=== PATIENT | male | born 1950 | race Caucasian/White ===

== ENCOUNTER 2025-02-21 00:59 | Inpatient (IN) | payer OTHER ==
[~2025-02-21] VITALS: Ht 172.7 cm; Wt 111.7 kg
[2025-02-21] VITALS (28 sets, daily range): BP systolic 74–167; BP diastolic 42–94; PULSE 77–155; RESP 0–22; TEMP 97–98.1; O2SAT 88–100
[2025-02-21] MEDS: SODIUM CHLORIDE 0.9% 1,000 ML IV ONE ×2 (01:15→04:15)
[2025-02-21] MEDS: PIPERACILLIN-TAZOB 3.375GM 100 ML IV ONE ×2 (01:15→04:15)
--- NOTE | 2025-02-21 01:16 | ED.PDOC ---
CPR-HPI HPI Comments 74 year old male PMHx a-fib RVR, DM, prostate cancer currently under carla motherapy and radiation, HTN presents to the ED via EMS with a chief complaint of cardiac arrest. Per EMS, total downtime was approximately 17 minutes. Patient was being transported from [facility] by transport team, witnessed cardiac arrest, compressions began immediately. In route to ED, IO was placed RLE, 4 rounds EPI was given in route. Upon ED arrival, compressions continued, patient was intubated with 8.0 ett, 24 at lips. Temperature was 97.8 F, BG was 157. ROSC 0105. Chief Complaint: CPR Time Seen by MD: 00:55 Reviewed Notes: Medications, Allergies Allergies: Coded Allergies: UNOBTAINABLE (Unverified , 02/21/25) Information Source: Emergency Med Personnel Mode of Arrival: EMS Timing: Minutes Duration: Total time prior hopital: (17 minutes) Onset: Witnessed Available Hx: Prior Cardiac Disease Treatment: CPR, Epinephrine, None (IO) Response: No response Past Medical History PAST MEDICAL HISTORY: AFIB, CAD, DM, HTN Surgical History: Unknown Family History Family History: Reviewed,noncontributory to illness, No family hx of Cancer, No family hx of DM, No family hx of Heart mary, No family hx of HTN, No family hx ofKidney mary, No family hx of Liver mary, No family hx of Lung mary, No family hx of Stroke Social History Smoker: Unknown Alcohol: Unknown Drugs: Unknown Lives In: Home Unable to Obtain due to: Medical Urgency Physical Exam Exam Comments Obese, ashen, gravely ill appearing. CPR in progress. General Appearance: Severe Distress HEENT: Head, Other Neck: Full Range of Motion, Non-Tender, Normal, Normal Inspection Respiratory: Chest Non-Tender, Lungs Clear, No Accessory Muscle Use, No Respiratory Distress, Normal Breath Sounds Cardiovascular: Other (Initially pulseless, successfully resuscitated with tachycardic rate and palpable pulses) Breast Exam: Deferred Gastrointestinal: Distended, Non Tender, Soft, Other (Obese) Genitalia: Deferred Pelvic: Deferred Rectal: Deferred Extremities: No calf tenderness, Normal capillary refill, Normal inspection, Normal range of motion, Non-tender, No pedal edema Musculoskeletal : Apperance: Normal Neurologic: Other (Unresponsive) Cerebellar Function: Normal Reflexes: Normal Skin: Dry, Normal Color, Warm Lymphatic: No Adenopathy Was a procedure done? Was a procedure done?: Yes Sedation Sedation?: No Informed consent obtained: No Intubation Indication: Respiratory Insufficiency Intubation Approach: Orotracheal (8.0) Intubation size: cm (24) Notes I, Dr. Uriostegui supervised Vita Menjivar, resident physician as she intubated. Differential Dx CPR Differential Diagnosis: Cardiopulmonary arrest, Cardiac Tamponade, Cardiogenic shock, Dysrhythmia, Electrolyte disorder, Heart Block, Myocardial Infarction, Pneumothorax, Pulmonary Embolus, Respiratory Failure, Ruptured Aortic Aneurysm, Other X-Ray, Labs, Meds, VS Vital Signs Date Time Temp Pulse Resp B/P (MAP) Pulse Ox O2 Delivery O2 Flow Rate FiO2 02/21/25 02:55 97.8 77 18 167/94 100 97.8 02/21/25 01:51 97.8 97.8 02/21/25 01:45 77 18 167/94 (118) 100 02/21/25 01:25 18 92/33 (52) 02/21/25 01:10 114 Lab Test 02/21/25 02:10 02/21/25 01:22 Range/Units Troponin I High Sensitivity Pending 156 *H </=54 ng/L White Blood Count 25.1 H 4.4-10.8 10^3/uL Red Blood Count 2.84 L 4.5-5.90 10^6/uL Hemoglobin 8.3 L 13.5-17.5 g/dL Hematocrit 27.6 L 41.0-53.0 % Mean Corpuscular Volume 97.4 80.0-100.0 fL Mean Corpuscular Hemoglobin 29.1 28.0-32.0 pg Mean Corpuscular Hemoglobin Concent 29.9 L 32.0-36.0 g/dL Red Cell Distribution Width 17.0 H 11.8-14.3 % Platelet Count 281 140-450 10^3/uL Mean Platelet Volume 8.0 6.9-10.8 fL Neutrophils (%) (Auto) 37.0-80.0 % Lymphocytes (%) (Auto) 10.0-50.0 % Monocytes (%) (Auto) 0.0-12.0 % Basophils (%) (Auto) 0.0-2.0 % Neutrophils # (Auto) 1.6-8.6 10 ^3/uL Lymphocytes # (Auto) 0.4-5.4 10 ^3/uL Monocytes # (Auto) 0-1.3 10 ^3/uL Differential Total Cells Counted 100.0 100 Neutrophils % (Manual) 79 37.0-80.0 Band Neutrophils % (Manual) 3 Lymphocytes % (Manual) 16 10.0-50.0 Monocytes % (Manual) 2 0-12 Eosinophils % (Manual) 0 0-7 Basophils % (Manual) 0 0.0-2.0 Metamyelocytes % (manual) 0 Myelocytes % (Manual) 0 Promyelocytes % (Manual) 0 Blast Cells % (Manual) 0 Reactive Lymphocytes 0 Platelet Estimate Adequate Sodium Level 148 H 136-145 mmol/L Potassium Level 5.1 3.5-5.1 mmol/L Chloride Level 106 98-107 mmol/L Carbon Dioxide Level 20 20-31 mmol/L Anion Gap 22 H 5-15 Blood Urea Nitrogen 54 H 9-23 mg/dL Creatinine 1.74 H 0.700-1.30 mg/dL Glomerular Filtration Rate Calc 40 >90 mL/min BUN/Creatinine Ratio 31.0 H 10.0-20.0 Serum Glucose 231 H 74-106 mg/dL Lactic Acid Level 11.8 *H 0.4-2.0 mmol/L Calcium Level 8.1 L 8.7-10.4 mg/dL Magnesium Level 2.5 1.6-2.6 mg/dL Total Bilirubin 0.6 0.2-1.0 mg/dL Aspartate Amino Transferase (AST) 252 H 13-40 U/L Alanine Aminotransferase (ALT) 265 H 7-40 U/L Alkaline Phosphatase 173 H 46-116 U/L B-Type Natriuretic Peptide 520.13 0-100 pg/mL Total Protein 5.0 L 5.7-8.2 g/dL Albumin 2.7 L 3.2-4.8 g/dL Current Medications Medications (Trade) Dose Ordered Sig/Catherine Route Start Time Stop Time Status Last Admin Sodium Chloride 1,000 ml @ 1,000 mls/hr Q1H ONCE IV 02/21/25 01:15 02/21/25 02:14 DC 02/21/25 01:15 Time of 1ST Reevaluation: 01:25 Reevaluation 1ST: Unchanged Patient Education/Counseling: Diagnosis, Treatment, Other Family Education/Counseling: Diagnosis, Treatment, No Family Present SEPSIS Sepsis Screen Physician Orders Chest Portable (02/21/25 01:15) Urinalysis (02/21/25 01:15) Electrocardigram (02/21/25 01:15) Troponin-I Hs (02/21/25 02:15) Troponin-I Hs (02/21/25 04:15) Blood Culture (02/21/25 01:15) Vent Ip Init (02/21/25 01:05) Respiratory Culture W/ Gs (02/21/25 01:05) Abg W/ Co-Ox (02/21/25 02:05) Epinephrine Hcl (02/21/25 01:45) Communication Order (02/21/25 01:33) Epinephrine Hcl (02/21/25 02:00) Norepinephrine 8 Mg/250ml Kit (Levophed) (02/21/25 02:00) Chest Xray 1 View (02/21/25 02:28) Communication Order (02/21/25 02:46) Sodium Chl 0.9% (So... W/Vasopressin (02/21/25 03:15) Vital Signs Date Time Temp Pulse Resp B/P (MAP) Pulse Ox O2 Delivery O2 Flow Rate FiO2 02/21/25 02:55 97.8 77 18 167/94 100 97.8 02/21/25 01:51 97.8 97.8 02/21/25 01:45 77 18 167/94 (118) 100 02/21/25 01:25 18 92/33 (52) 02/21/25 01:10 114 Laboratory Tests Test 02/21/25 01:22 Lactic Acid Level 11.8 mmol/L (0.4-2.0) *H White Blood Count 25.1 10^3/uL (4.4-10.8) H Medications Medications Dose Ordered Sig/Catherine Route Start Time Stop Time Status Last Admin Dose Admin Sodium Chloride 1,000 ml @ 1,000 mls/hr Q1H ONCE IV 02/21/25 01:15 02/21/25 02:14 DC 02/21/25 01:15 Departure 1 Departure Time of Disposition: 03:13 Impression: Primary Impression: Cardiac arrest Additional Impressions: Respiratory failure with hypoxia Acute coronary syndrome Congestive heart failure Type 2 diabetes mellitus with hyperglycemia Acute renal injury Disposition: 09 ADMITTED INPATIENT Admit to: ICU Condition: Critical Discharged With: Self, Relative, Spouse Comments 74-year-old male brought in by ambulance in full arrest CPR in progress. CPR was continued in the emergency department. Patient was intubated for MAC blade and 8-0 cuffed endotracheal tube. With ACLS medications the patient was suc cessfully resuscitated and obtained a good pulse. A central line was placed in the left IJ. On lab review white blood cell count is high at 25. No severe anemia with H and H of 8 and 28. Sodium slightly elevated at 148. Borderline hyperkalemia 5.1. Acute renal injury we BUN creatinine elevated at 54 and 1.74. Hyperglycemia 231. Lactic acid high at 11.8. Troponin high at 156. BNP high at 520. Patient will need ICU admission for stabilization and further workup. Critical Care Note Critical Care Time?: Yes (45 min-critical care time only) Critical care comment: Total critical care time: Approximately 45 minutes Due to a high probability of clinically significant, life threatening deterioration, the patient required my highest level of preparedness to intervene emergently and I personally spent this critical care time directly and personally managing the patient. This critical care time included obtaining a history; examining the patient; pulse oximetry; ordering and review of studies; arranging urgent treatment with development of a management plan; evaluation of patient's response to treatment; frequent reassessment; and, discussions with other providers. This critical care time was performed to assess and manage the high probability of imminent, life-threatening deterioration that could result in multi-organ failure. It was exclusive of separately billable procedures and treating other patients. Heart Score Heart Score: Heart Score Response (Comments) Value History Moderate Suspicious 1 EKG Repolarization Disturb 1 Age >65 2 Risk Factors >3 or Hx ASHD 2 Troponin 1-2 x's Normal limit 1 Total 7 Stability Stability form required: No I personally scribed for KOREY URIOSTEGUI MD ([email or web address]) on 02/21/25 at 01:16. Electronically submitted by Poly Chao ([email or web address]). I personally scribed for KOREY URIOSTEGUI MD ([email or web address]) on 02/21/25 at 01:17. Electronically submitted by Poly Chao ([email or web address]). KOREY URIOSTEGUI MD Feb 21, 2025 01:16
[2025-02-21] MEDS: EPINEPHrine HCL 250 ML IV ONE (01:32)
[2025-02-21] MEDS: EPINEPHrine HCL 250 ML IV SCH ×2 (01:39→01:45)
[2025-02-21] MEDS: NOREPINEPHRINE 8 MG/250ML KIT 250 ML IV SCH (01:39)
[2025-02-21 01:45] LABS: Hemoglobin 8.3 g/dL (13.5-17.5)
[2025-02-21] MEDS: NOREPINEPHRINE 8 MG/250ML KIT 250 ML IV ONE (01:45)
[2025-02-21 01:46] LABS: Hematocrit 27.6 % (41.0-53.0); Mean Corpuscular Hemoglobin 29.1 pg (28.0-32.0); Mean Corpuscular Volume 97.4 fL (80.0-100.0)
[2025-02-21 02:02] LABS: Anion Gap 22 (5-15); BUN/Creatinine Ratio 31.0 (10.0-20.0); Chloride 106 mmol/L (98-107); Magnesium 2.5 mg/dL (1.6-2.6); Potassium 5.1 mmol/L (3.5-5.1)
[2025-02-21 02:03] LABS: Bilirubin, Total 0.6 mg/dL (0.2-1.0)
[2025-02-21 02:05] LABS: Lactic Acid w/Reflex 11.8 mmol/L (0.4-2.0)
[2025-02-21 02:06] LABS: Alanine Aminotransferase 265 U/L (7-40); Albumin 2.7 g/dL (3.2-4.8); Alkaline Phosphatase 173 U/L (46-116); Blood Urea Nitrogen 54 mg/dL (9-23); Calcium 8.1 mg/dL (8.7-10.4); Carbon Dioxide 20 mmol/L (20-31); Glucose 231 mg/dL (74-106); Sodium 148 mmol/L (136-145); Total Protein 5.0 g/dL (5.7-8.2)
--- NOTE | 2025-02-21 02:16 | DVHNC2 ---
Intubation Indication: Respiratory Insufficiency, Altered Mental Status, Airway Protection Prep: Preoxygenation Pretreated with: Nothing Medicated with: Nothing Intubation Approach: Orotracheal Intubation size: cm (8) Informed consent obtained: No Risks/benefits/alt described: No UTO Consent Patient was admitted due to cardiac arrest. No consents obtained Notes Completed ET intubation with direct laryngoscopy. Procedure supervised by Dr Montes Date of Service: Feb 21, 2025 Billing Provider: SHAKEEL GRIGSBY Common Visit Codes: PROCEDURE ONLY Procedure Codes: [id number] SHAKEEL GRIGSBY Feb 21, 2025 02:16
--- NOTE | 2025-02-21 02:20 | DVH ---
CHEST RADIOGRAPH Indication: SOB Technique: Single frontal view of the chest was obtained COMPARISON: XR CHEST 1 VIEW on DOS: 02/07/25, CT CHEST WO on DOS: 07/28/23, XR CHEST 1 VIEW on DOS: FINDINGS: Lines and Tubes: Endotracheal tube tip projects approximately 0.9 cm above the level of the melody. E nteric catheter terminates within the mid to distal esophagus. Left internal jugular central venous catheter tip projects over the expected location of the cavoatrial junction. Lungs: Diminished lung volumes and small bilateral pleural effusions with mild concomitant exaggerati on of the pulmonary vasculature. No evidence of focal consolidation. Pleura: No effusion. No pneumothorax. Cardiomediastinal contours: Unremarkable Bones: Unremarkable IMPRESSION: 1. Enteric catheter terminates within the mid to distal esophagus. Recommend advancement. 2. Endotracheal tube proximally 0.9 cm above the level of the melody. Reposition for optimal placemen t. 3. Left internal jugular central venous catheter. 4. Diminished lung volumes and small bilateral pleural effusions.
--- NOTE | 2025-02-21 02:20 | DVHNC2 ---
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) Indication: Hypotension, Volume resuscitation, Inability to obtain IV, Other (Cardiac arrest) Room prepared for procedure: Yes Relay Worker performed hand hygien: Yes Maximal sterile barrier precau: Mask/Eye shield, Sterile gown, Cap, Sterlie gloves, Large sterlie drape Skin Preparation: Chlorhexidine gluconate Skin preparation completely dr: Yes Insertion site: Left, Internal jugular, Line secured Central line catheter type: [id number] dialysis Number of lumens: 3 Central line exchanged over a: No Antiseptic ointment applied to: Yes Post Assessment: Chest X-Ray, Proper placement, No Pneumothorax Informed consent obtained: No Risks/benefits/alt described: No UTO Consent Patient admitted with cardiac arrest. No consents obtained Notes Completed procedure with US guidance. Procedure supervised by Dr Uriostegui Date of Service: Feb 21, 2025 Billing Provider: KOREY URIOSTEGUI MD Common Visit Codes: PROCEDURE ONLY Procedure Codes: [id number] NON-TUNNEL CV CATH SHAKEEL GRIGSBY RESIDENT Feb 21, 2025 02:20
[2025-02-21 02:23] LABS: Total Cells Counted 100.0 (100)
[2025-02-21] MEDS: VASOPRESSIN 20 UNITS in SODIUM CHL 0.9% 99 ML IV SCH (02:30)
--- NOTE | 2025-02-21 02:55 | DVH ---
CHEST RADIOGRAPH Indication: CENTRAL// CODE Technique: Single frontal view of the chest was obtained COMPARISON: XY CHEST PORTABLE on DOS: 02/21/25, XR CHEST 1 VIEW on DOS: 02/07/25, CT CHEST WO on DOS: , XR CHEST 1 VIEW on DOS: 05/28/23 FINDINGS: Lines and Tubes: Interval advancement of the enteric catheter with tip now projecting over the expect ed location of the gastroesophageal junction. Remaining lines and tubes unchanged. Lungs: Clear Pleura: Stable appearing small bilateral pleural effusions. No pneumothorax. Cardiomediastinal contours: Unremarkable Bones: Unremarkable IMPRESSION: 1. Interval advancement of the enteric catheter with tip now projecting over the expected location of the gastroesophageal junction. Remaining Lines and tubes unchanged 2. Small bilateral pleural effusions.
[2025-02-21] MEDS: VASOPRESSIN 20 UNIT/ML ONE (03:22)
[2025-02-21 03:42] LABS: Base Excess -11.2 mmol/L (-2.0-3.0)
[2025-02-21] MEDS: SODIUM BICARB 50mEq/50ml Vial 150 ML in SOD CHL 0.45% 1,000 ML IV ONE (04:39)
[2025-02-21] MEDS: SODIUM BICARB 8.4% 50Meq/50ml SYR Vial IV ONE (04:40)
[2025-02-21] MEDS: MIDAZOLAM DRIP 50 mg/50mL 50 ML IV SCH (05:00)
--- NOTE | 2025-02-21 05:12 | RESUS ---
CODE BLUE ASSESSSMENT History of Events History of Events: 74 year old male PMHx a-fib RVR, DM, prostate cancer currently under chemotherapy and radiation, HTN presents to the ED via EMS with a chief complaint of cardiac arrest. Per EMS, total downtime was approximately 17 minutes. Patient was being transported from [facility] by transport team, witnessed cardiac arrest, compressions began immediately. In route to ED, IO was placed RLE, 4 rounds EPI was given in route. Upon ED arrival, compressions continued, patient was intubated with 8.0 ett, 24 at lips. Temperature was 97.8 F, BG was 157. Multiple episodes of Cardiac arrest after ROSC at 0105. Initial Information Date: Feb 21, 2025 Time: 00:55 Location of Arrest: In Field Arrest Witnessed: Yes CPR started initial time: 00:25 CPR started by whom: EMS Last seen well: 0024 Pre-Hospital Care: ACLS Type of arrest: Cardiac, Trauma, Adult, Witnessed Spontaneous Respirations: No Pulse Present: No Monitoring: ECG, Pulse Oximetry, Telemetry Crash Cart Opened and Supplies: Yes Airway Ventilation Oxygen Delivery Method: Mechanical Ventilator Artificial Ventilation: Bag/Endo tube Intubation Size: 8.0 cuffed Intubated by: Dr. Gorman Intubation Attempts: 1 Intubated orally: Yes Tube secured at: 26 (@ lip) Confirmation: Auscultation Suctioning (Oral/Tracheal): Yes Comments: confired via color change, and auscultation Circulation Circulation #1: Time: 00:55 Pulse Rate (adult): 0 Blood Pressure Systolic: 0 Blood Pressure Diastolic: 0 Circulation Comment: Arrival with manual compressions Circulation #2: Time: 00:57 Pulse Rate (adult): 0 Blood Pressure Systolic: 0 Blood Pressure Diastolic: 0 Circulation Comment: asystole- intubated at this time b/s 157 Circulation #3: Time: 00:59 Pulse Rate (adult): 0 Blood Pressure Systolic: 0 Blood Pressure Diastolic: 0 Circulation Comment: asystole Circulation #4: Time: 01:01 Pulse Rate (adult): 0 Blood Pressure Systolic: 0 Blood Pressure Diastolic: 0 Circulation Comment: asystole Circulation #5: Time: 01:03 Pulse Rate (adult): 70 Blood Pressure Systolic: 0 Blood Pressure Diastolic: 0 Circulation Comment: PEA Circulation #6: Time: 01:05 Pulse Rate (adult): 114 Blood Pressure Systolic: 167 Blood Pressure Diastolic: 94 Circulation Comment: ROSC Circulation #7: Time: 01:19 Circulation Comment: Patient bradyed down, Pulses lost Code blue started. compressions. Circulation #8: Time: 01:21 Pulse Rate (adult): 0 Blood Pressure Systolic: 0 Blood Pressure Diastolic: 0 Circulation Comment: Asystole Circulation #9: Time: 01:23 Pulse Rate (adult): 75 Circulation Comment: PEA Circulation #10: Time: 01:25 Pulse Rate (adult): 115 Blood Pressure Systolic: 92 Blood Pressure Diastolic: 33 Circulation Comment: ROSC- Already on Epi GTT, and Will be started on Vasopressin Circulation #11: Time: 01:40 Pulse Rate (adult): 0 Blood Pressure Systolic: 0 Blood Pressure Diastolic: 0 Circulation Comment: Patient bradyed down, Pulses lost Code blue started. compressions. Circulation #12: Time: 01:42 Pulse Rate (adult): 80 Blood Pressure Systolic: 0 Blood Pressure Diastolic: 0 Circulation Comment: PEA Circulation #13: Time: 01:44 Pulse Rate (adult): 80 Circulation Comment: PEA Circulation #14: Time: 01:46 Pulse Rate (adult): 115 Blood Pressure Systolic: 116 Blood Pressure Diastolic: 55 Circulation Comment: ROSC Circulation #15: Time: 02:05 Pulse Rate (adult): 0 Blood Pressure Systolic: 0 Blood Pressure Diastolic: 0 Circulation Comment: Patient bradyed down, Pulses lost Code blue started. compressions. Circulation #16: Time: 02:07 Pulse Rate (adult): 110 Circulation Comment: Rosc Medications & Response Medications and Responses #1: Medication Time: 00:58 ADULT Medications Given ADULT: Epinephrine 1 mg, Sodium Bacarbinate 50 meq Route of Administration: IO EKG Rhythm: Asystole EKG Rhythm: Asystole Medications and Responses #2: Medication Time: 01:01 ADULT Medications Given ADULT: Epinephrine 1 mg Route of Administration: IO EKG Rhythm: Asystole EKG Rhythm: Asystole Medications and Responses #3: Medication Time: 01:04 ADULT Medications Given ADULT: Epinephrine 1 mg, Sodium Bacarbinate 50 meq Route of Administration: IO EKG Rhythm: Asystole Blood Pressure Systolic: 0 Blood Pressure Diastolic: 0 EKG Rhythm: Asystole Medications and Responses #4: Medication Time: 01:20 ADULT Medications Given ADULT: Epinephrine 1 mg Route of Administration: IO Heart Rate: 75 EKG Rhythm: PEA Blood Pressure Systolic: 92 Blood Pressure Diastolic: 33 EKG Rhythm: PEA Medications and Responses #5: Medication Time: 01:41 ADULT Medications Given ADULT: Epinephrine 1 mg Route of Administration: IO Heart Rate: 75 EKG Rhythm: PEA EKG Rhythm: PEA Medications and Responses #6: Medication Time: 01:44 ADULT Medications Given ADULT: Epinephrine 1 mg Route of Administration: IV Heart Rate: 75 EKG Rhythm: PEA Medications and Responses #7: Medication Time: 02:06 ADULT Medications Given ADULT: Epinephrine 1 mg, Sodium Bacarbinate 50 meq Route of Administration: IV Heart Rate: 97 EKG Rhythm: PEA Nurses Notes [place] Coma Scale Eye Opening: None (1) [place] Coma Scale Verbal: None (1) [place] Coma Scale Motor: None (1) [place] Total: 3 Pupil Reaction: Non Reactive Bedside Blood Glucose: 157 EKG Rhythm: Atrial Fibrillation Nurses Notes - Comment: Total of 4 times of Code blue with ROSC. Post code, pt was started with a central line and multiple pressors. Pending admit orders. Time Code Ended Post Arrest Status: Ventilated Outcome of code: Successful Code Team Present: Dr. Montes, Trey Mccallum RT, Ml ER CN, Guillermina RN, Michael RN, Miranda EMT, Jeremías EMT, Jeff RN HS Post Resuscitation Neurologica Pupil Size: 6 Comment: dilated, unresponsive to light ROSC Time of ROSC: 02:07 (Down multiple times) JEFF HOFFMAN Feb 21, 2025 05:12
[2025-02-21] MEDS: MIDAZOLAM DRIP 50 mg/50mL 50 ML IV ONE (05:23)
--- NOTE | 2025-02-21 05:54 | PRN ---
Misceleneous Note Note Note Patient was seen and evaluated ER bed 9 in presence of waitstaff. At this time emergency department ulcer still pending completion and resulting. Have instructed waitstaff Kraig to contact choice hospitalist for admission orders once CTs have been resulted. ALY MA NP Feb 21, 2025 05:54
[2025-02-21] MEDS ORDERED: MORPHINE SULFATE INJ 2 MG/ml SYRG IV PRN ×4 (06:45→13:30)
[2025-02-21] MEDS ORDERED: ACETAMINOPHEN 650 MG RECT SUPP PR PRN (06:45)
[2025-02-21] MEDS ORDERED: VANCOMYCIN PER PHARMACY 0 MG IV SCH (06:45)
[2025-02-21] MEDS ORDERED: NITROGLYCERIN 0.4 MG SL TAB SL PRN ×2 (06:45→07:45)
--- NOTE | 2025-02-21 06:55 | DVH ---
EXAM: CT HEAD WITHOUT CONTRAST INDICATION: ALOC. TECHNIQUE: CT of the head without intravenous contrast. Coronal and sagittal reformatted images are s ubmitted. Radiation Dose : 1. Head: CT Dose: CTDI volume is 26.1 mGy. Dose-length product is 1558.4 mGy*cm The dose indicators for CT are the volume Computed Tomography (CT) Dose Index (CTDIvol) and the Dose Length Product (DLP), and are measured in units of mGy and mGy-cm, respectively. These indicators are not patient dose, but values generated from the CT scanner acquisition factors. The report includes radiation exposure data for exposures received during this examination. All CT scans at this medical facility are performed using dose modulation techniques as appropriate to a performed exam including the following: Automated exposure control was utilized; adjustment of the MA and/or KV according to patient size; and use of iterative reconstruction technique. COMPARISON: None FINDINGS: There is no evidence of acute intracranial hemorrhage, extra-axial collection, mass effect, midline s hift, herniation or hydrocephalus. The ventricles, sulci and cisterns are age appropriate. The moreno-white differentiation is intact. Mastoid air cells are clear. There is air-fluid level in the left sinus. No depressed calvarial fracture. The surrounding soft tissues are unremarkable. IMPRESSION: 1. No evidence of acute intracranial abnormality.
--- NOTE | 2025-02-21 07:02 | DVH ---
Exam: CT CT AB PEL WO CON-NO ORAL OR IV History: abd pain. Comparison Study: CT ABD PELVIS WO on DOS: 08/30/24. Technique: Multidetector spiral CT of the abdomen and pelvis was performed from lung bases to pubic s ymphysis. Imaging was performed without intravenous contrast. Coronal and sagittal multiplanar reform ats were obtained from the axial data set by the technologist. Radiation Dose : 1. Abdomen/Pelvis: CTDIvol 26.1 mGy, DLP 1558.4 mGy*cm. Findings: Evaluation of vasculature and solid organs is limited due to lack of intravenous contrast use. Lung Bases: Bilateral lower lobe consolidations. No cardiomegaly. Coronary artery calcifications. N o pericardial effusion. Liver: The liver is normal in size. No focal lesions. Gallbladder and Biliary Tree: The gallbladder is unremarkable No intrahepatic or extrahepatic biliar y ductal dilatation. Spleen: Unremarkable Pancreas: The pancreas is grossly unremarkable. Adrenal Glands: Unremarkable Kidneys: Bilateral renal atrophy. No renal calculi or hydronephrosis. GI tract: The stomach is distended. Fluid-filled small-bowel loops. Liquid stool throughout the colo n. No acute appendicitis. Peritoneum/mesentery/retroperitoneum. No evidence of free intraperitoneal air. No ascites. No evidenc e of suspicious lymphadenopathy. Abdominal Wall: Unremarkable. Vasculature: The visualized abdominal aorta is normal in size and caliber. Evaluation of abdominal a nd pelvic vessels is limited due to lack of intravenous contrast. Urinary Bladder: There is a Alexander catheter in the urinary bladder. There is air in the urinary bladde r. Pelvic Organs: Unremarkable Musculoskeletal: No aggressive focal bony lesions, acute fractures or dislocation. Soft tissues: Body wall anasarca noted. IMPRESSION: 1. Bilateral lower lobe consolidations. 2. Fluid-filled small-bowel loops and liquid stool throughout the colon. Findings may be seen with e nterocolitis. 3. Body wall anasarca. 4. Underdistended urinary bladder containing a Alexander catheter. Air in the urinary bladder may be rel ated to the presence of the Alexander catheter. Infection not excluded.
[2025-02-21] MEDS ORDERED: DEXTROSE (50%) 50ML SYRG IV PRN (07:15)
[2025-02-21 07:44] LABS: Urine Budding Yeast MODERATE /hpf (None Seen); Urine Hyphae Yeast PRESENT /hpf; Urine Protein, UAD 2+ (Negative); Urine WBC Clumps PRESENT /hpf (None Seen)
--- NOTE | 2025-02-21 07:54 | DVHHP2 ---
ALY MA [employer] 02/21/25 0754: History of Present Illness Reason for Visit: Cardiac arrest History of Present Illness Information in this HPI is limited due to the patient's critical condition. Mainly acquired from EHR and ER physician. As per the ER physician patient was being transported from [facility] to a residential facility last night. While EN route patient went into cardiac arrest. As per ER physician Patient was down for 17 minutes before CPR was initiated. ROSC achieved. On arrival to the emergency department patient was intubated and placed on mechanical ventilation. During the emergency department evaluation W25.1, H&H is 8.3/27.6, PLT 281. Na 148, K5.1, anion gap 22, BUN 54, creatinine 1.74 GFR 40. AST 252, ALT 265, total bilirubin 0.6. LA 11.8/12.5. BNP 520, troponin 156/198/1527 with the upward trend. CXR presents small bilateral pleural effusions. CT head no acute intracranial abnormality. CT abdomen and pelvis impression reads bilateral lower lobe consolidations. Fluid-filled small bowel loops and liquid stool throughout the colon findings may be seen with enteric colitis. Body wall anasarca. Under distended urinary bladder containing Alexander catheter air in the urinary bladder may be related to the presence of the Alexander catheter. Infection not excluded. This time patient is admitted for further evaluation and treatment. Cardiovascular: HTN Heme/Onc: Cancer Past Social History Unable to obtain social history Review of Systems Review of Systems Unable to complete ROS due to critical condition, intubated, on sedation Allergies: Coded Allergies: UNOBTAINABLE (Unverified , 02/21/25) Medications Current Medications Medications Dose Ordered Sig/Catherine Route Start Time Stop Time Status Last Admin Dose Admin Epinephrine HCl 250 ml @ 7.5 mls/hr Q24H IV 02/21/25 01:45 Hold Epinephrine HCl 250 ml @ 7.5 mls/hr Q24H IV 02/21/25 02:00 02/21/25 01:39 37.5 MLS/HR Norepinephrine Bitartrate 250 ml @ 3.75 mls/hr Q24H IV 02/21/25 02:00 02/21/25 01:39 56.25 MLS/HR Vasopressin 20 units/Sodium Chloride 100 ml @ 9 mls/hr Q11H7M IV 02/21/25 03:15 02/21/25 02:30 9 MLS/HR Midazolam HCl 50 ml @ 1 mls/hr Q24H IV 02/21/25 05:15 02/21/25 05:00 1 MLS/HR Nitroglycerin 0.4 mg Q5MINP PRN SL 02/21/25 06:45 UNV Morphine Sulfate 2 mg Q30M PRN IV 02/21/25 06:45 UNV Vancomycin HCl 0 ml @ 0 mls/hr UD IV 02/21/25 06:45 UNV Cefepime HCl 50 ml @ 50 mls/hr BID IV 02/21/25 10:00 UNV Acetaminophen 650 mg Q6HP PRN PA 02/21/25 06:45 UNV Enoxaparin Sodium 40 mg DAILY SC 02/21/25 10:00 UNV Pantoprazole Sodium 40 mg DAILY IV 02/21/25 10:00 UNV Diagnostic Test (Pha) 1 strip IQ4HR 02/21/25 08:00 UNV Insulin Human Regular IQ4HR SC 02/21/25 08:00 UNV Dextrose 50 ml UD PRN IV 02/21/25 07:15 UNV Exam Vital Signs Vital Signs Date Time Temp Pulse Resp B/P (MAP) Pulse Ox O2 Delivery O2 Flow Rate FiO2 02/21/25 06:26 95 23 98 50 02/21/25 02:55 97.8 97.8 02/21/25 01:30 Mechanical Ventilator+ General Appearance: moderate distress HEENT: Other Respiratory: Other (Intubated, Tolerating mechanical ventilator) Cardiovascular: Normal S1, Normal S2 Abdominal: Soft, No tenderness Extremities: Other (Left BKA with immobilizer. Dressing CDI) Neuro: Other (Patient is sedated) Labs/Xrays Labs Test 02/21/25 06:55 02/21/25 04:25 02/21/25 03:32 02/21/25 02:48 Range/Units Troponin I High Sensitivity 527 *H </=54 ng/L Lactic Acid Level 12.5 *H 0.4-2.0 mmol/L Blood Gas Specimen Type Arterial Blood Gas Sample Site Right radial Blood Gas Patient Temperature 37.0 Arterial Blood Date Drawn [id number] Arterial Blood pH 7.230 *L 7.350-7.450 Arterial Blood Partial Pressure CO2 37.9 35.0-48.0 mmHg Arterial Blood Partial Pressure O2 161.7 H 83.0-108.0 mmHg Arterial Blood HCO3 15.5 L 21.0-28.0 mmol/L Arterial Blood Oxygen Saturation 98.8 H 94.0-98.0 % Arterial Blood Base Excess -11.2 L -2.0-3.0 mmol/L Arterial Blood Oxyhemoglobin 98.0 94.0-98.0 % Arterial Blood Carboxyhemoglobin 0.2 L 0.5-1.5 % Arterial Blood Methemoglobin 0.6 0.0-1.5 % Cricket Test Modified Blood Gas Total Hemoglobin 9.70 L 13.5-17.5 g/dL Blood Gas Set Respiration Rate 18.0 Blood Gas Modality Vent - ac FiO2 % 100.0 Blood Gas Tidal Volume 450.0 Blood Gas PEEP or CPAP 5.0 Blood Gas Critical Value Read Back Yes Blood Gas Notified Whom Dr. kwame hernandez Blood Gas Notified Time [id number] Blood Gas Notified By [facility] Test 02/21/25 01:22 Range/Units White Blood Count 25.1 H 4.4-10.8 10^3/uL Red Blood Count 2.84 L 4.5-5.90 10^6/uL Hemoglobin 8.3 L 13.5-17.5 g/dL Hematocrit 27.6 L 41.0-53.0 % Mean Corpuscular Volume 97.4 80.0-100.0 fL Mean Corpuscular Hemoglobin 29.1 28.0-32.0 pg Mean Corpuscular Hemoglobin Concent 29.9 L 32.0-36.0 g/dL Red Cell Distribution Width 17.0 H 11.8-14.3 % Platelet Count 281 140-450 10^3/uL Mean Platelet Volume 8.0 6.9-10.8 fL Neutrophils (%) (Auto) 37.0-80.0 % Lymphocytes (%) (Auto) 10.0-50.0 % Monocytes (%) (Auto) 0.0-12.0 % Basophils (%) (Auto) 0.0-2.0 % Neutrophils # (Auto) 1.6-8.6 10 ^3/uL Lymphocytes # (Auto) 0.4-5.4 10 ^3/uL Monocytes # (Auto) 0-1.3 10 ^3/uL Differential Total Cells Counted 100.0 100 Neutrophils % (Manual) 79 37.0-80.0 Band Neutrophils % (Manual) 3 Lymphocytes % (Manual) 16 10.0-50.0 Monocytes % (Manual) 2 0-12 Eosinophils % (Manual) 0 0-7 Basophils % (Manual) 0 0.0-2.0 Metamyelocytes % (manual) 0 Myelocytes % (Manual) 0 Promyelocytes % (Manual) 0 Blast Cells % (Manual) 0 Reactive Lymphocytes 0 Platelet Estimate Adequate Sodium Level 148 H 136-145 mmol/L Potassium Level 5.1 3.5-5.1 mmol/L Chloride Level 106 98-107 mmol/L Carbon Dioxide Level 20 20-31 mmol/L Anion Gap 22 H 5-15 Blood Urea Nitrogen 54 H 9-23 mg/dL Creatinine 1.74 H 0.700-1.30 mg/dL Glomerular Filtration Rate Calc 40 >90 mL/min BUN/Creatinine Ratio 31.0 H 10.0-20.0 Serum Glucose 231 H 74-106 mg/dL Calcium Level 8.1 L 8.7-10.4 mg/dL Magnesium Level 2.5 1.6-2.6 mg/dL Total Bilirubin 0.6 0.2-1.0 mg/dL Aspartate Amino Transferase (AST) 252 H 13-40 U/L Alanine Aminotransferase (ALT) 265 H 7-40 U/L Alkaline Phosphatase 173 H 46-116 U/L B-Type Natriuretic Peptide 520.13 0-100 pg/mL Total Protein 5.0 L 5.7-8.2 g/dL Albumin 2.7 L 3.2-4.8 g/dL SEPSIS Sepsis Screen Date sepsis recognized/suspect: Feb 21, 2025 Time Sepsis recognized/suspect: 0156 Recent Procedure: No On Antibiotic Therapy: No Respiratory Rate >20: Yes Heart Rate >90: No Temp<36 C (96.8 F) or >38.3 C: No SBP <90 or MAP <65 mmHG: Yes New Acute Mental Status Change: Yes Is the patient on CPAP, BIPAP,: No Physician Orders Chest Portable (02/21/25 01:15) Urinalysis (02/21/25 01:15) Electrocardigram (02/21/25 01:15) Blood Culture (02/21/25 01:15) Vent Ip Init (02/21/25 01:05) Respiratory Culture W/ Gs (02/21/25 01:05) Abg W/ Co-Ox (02/21/25 02:05) Epinephrine Hcl (02/21/25 01:45) Communication Order (02/21/25 01:33) Epinephrine Hcl (02/21/25 02:00) Norepinephrine 8 Mg/250ml Kit (Levophed) (02/21/25 02:00) Chest Xray 1 View (02/21/25 02:28) Communication Order (02/21/25 02:46) Sodium Chl 0.9% (So... W/Vasopressin (02/21/25 03:15) Head Without Contrast (02/21/25 03:55) Sodium Bicarb 50meq/50ml Vial (02/21/25 04:15) Ct Ab Pel Wo Con-No Oral Or Iv (02/21/25 04:27) Midazolam Drip 50 Mg/50ml (Versed Drip 5 (02/21/25 05:15) Rass Sedation Scale Q1HR (02/21/25 05:15) Communication Order (02/21/25 05:50) Nitroglycerin Sublingual (Ntrostat Subli (02/21/25 06:45) Morphine Sulfate Injection (02/21/25 06:45) Stat Ekg For Chest Pain (02/21/25 06:31) Notify Of Changes From Base (02/21/25 06:31) Physician Practice Coordinator For 24 Hours (02/21/25 06:31) Emergency Dysrhythmia Protocol (02/21/25 06:31) Rhythm Strips Once Every Shift (02/21/25 06:31) Oxygen By Nasal Cannula (02/21/25 06:31) Complete Blood Count (02/22/25 05:00) Complete Blood Count (02/23/25 05:00) Complete Blood Count (02/24/25 05:00) Complete Blood Count (02/25/25 05:00) Complete Blood Count (02/26/25 05:00) Complete Blood Count (02/27/25 05:00) Complete Blood Count (02/28/25 05:00) Complete Blood Count (03/01/25 05:00) Complete Blood Count (03/02/25 05:00) Basic Metabolic Panel (02/22/25 05:00) Basic Metabolic Panel (02/23/25 05:00) Basic Metabolic Panel (02/24/25 05:00) Basic Metabolic Panel (02/25/25 05:00) Basic Metabolic Panel (02/26/25 05:00) Basic Metabolic Panel (02/27/25 05:00) Basic Metabolic Panel (02/28/25 05:00) Basic Metabolic Panel (03/01/25 05:00) Basic Metabolic Panel (03/02/25 05:00) Echo 2d Mode Cardiac Dop (02/21/25 06:31) Urine Bacterial Culture (02/21/25 06:31) Communication Order (02/21/25 06:31) Troponin-I Hs (02/21/25 14:00) Troponin-I Hs (02/21/25 22:00) *Consult (02/21/25 06:31) * Cardiology Consult (02/21/25 06:31) * Infectious [place]- Dr. Destiny Llanes (02/21/25 06:31) Vancomycin Per Pharmacy (02/21/25 06:45) Cefepime 1gm/50ml (Maxipime 1gm/50ml) (02/21/25 10:00) *[facility] (02/21/25 06:31) Acetaminophen Suppository (Tylenol Suppo (02/21/25 06:45) Lactic Acid W/ Reflex Order (02/21/25 10:00) Enoxaparin Sodium (Lovenox) (02/21/25 10:00) Pantoprazole (Protonix) (02/21/25 10:00) Glucose Blood (Accu-Chek Comfort Curve T (02/21/25 08:00) Insulin R (Human) (Insulin R) (02/21/25 08:00) Dextrose 50% Syringe (02/21/25 07:15) * Neurology Consult (02/21/25 07:21) Admit (02/21/25 07:34) Nitroglycerin Sublingual (Ntrostat Subli (02/21/25 07:45) Morphine Sulfate Injection (02/21/25 07:45) Stat Ekg For Chest Pain (02/21/25 07:34) Notify Of Changes From Base (02/21/25 07:34) Physician Practice Coordinator For 24 Hours (02/21/25 07:34) Emergency Dysrhythmia Protocol (02/21/25 07:34) Rhythm Strips Once Every Shift (02/21/25 07:34) Oxygen By Nasal Cannula (02/21/25 07:34) Vital Signs Date Time Temp Pulse Resp B/P (MAP) Pulse Ox O2 Delivery O2 Flow Rate FiO2 02/21/25 06:26 95 23 98 50 02/21/25 06:00 105 17 161/75 (103) 99 02/21/25 05:45 106 16 126/75 (92) 02/21/25 05:30 105 22 122/78 (93) 02/21/25 05:15 105 20 137/49 (78) 02/21/25 05:00 109 18 117/65 (82) 02/21/25 05:00 137/49 02/21/25 04:45 113 16 107/39 (61) 02/21/25 04:30 113 19 131/72 (91) 02/21/25 04:15 114 17 128/74 (92) 100 02/21/25 04:00 116 19 112/51 (71) 100 02/21/25 04:00 116 20 112/61 (78) 99 100 02/21/25 03:45 115 18 112/61 (78) 100 02/21/25 03:30 115 18 104/50 (68) 99 02/21/25 03:15 116 18 150/45 (80) 100 02/21/25 03:00 118 18 98/50 (66) 100 02/21/25 02:55 97.8 77 18 167/94 100 97.8 02/21/25 02:45 120 18 123/44 (70) 100 02/21/25 02:39 107/50 02/21/25 02:32 119 18 96/53 (67) 100 02/21/25 02:30 121 18 96/53 (67) 100 02/21/25 02:30 96/53 02/21/25 02:15 135 18 167/79 (108) 02/21/25 02:00 89 18 77/38 (51) 99 02/21/25 01:51 97.8 97.8 02/21/25 01:45 77 18 167/94 (118) 100 02/21/25 01:39 45/25 02/21/25 01:39 45/25 02/21/25 01:30 98 18 Mechanical Ventilator+ 100 100 02/21/25 01:30 101 18 89/40 (56) 02/21/25 01:25 18 92/33 (52) 02/21/25 01:10 114 02/21/25 01:00 177 167/94 (118) Laboratory Tests Test 02/21/25 01:22 02/21/25 03:32 Lactic Acid Level 11.8 mmol/L (0.4-2.0) *H 12.5 mmol/L (0.4-2.0) *H White Blood Count 25.1 10^3/uL (4.4-10.8) H Medications Medications Dose Ordered Sig/Catherine Route Start Time Stop Time Status Last Admin Dose Admin Aspirin 300 mg ONCE ONCE PA 02/21/25 05:45 02/21/25 05:46 DC 02/21/25 06:27 300 MG Epinephrine HCl 250 ml @ 7.5 mls/hr Q24H IV 02/21/25 02:00 02/21/25 01:39 37.5 MLS/HR Midazolam HCl 50 ml @ 1 mls/hr Q24H IV 02/21/25 05:15 02/21/25 05:00 1 MLS/HR Norepinephrine Bitartrate 250 ml @ 3.75 mls/hr Q24H IV 02/21/25 02:00 02/21/25 01:39 56.25 MLS/HR Piperacillin Sod/ Tazobactam Sod 100 ml @ 100 mls/hr ONCE ONCE IV 02/21/25 04:15 02/21/25 05:14 DC 02/21/25 04:15 100 MLS/HR Sodium Bicarbonate 150 ml/Sodium Chloride 1,150 ml @ 100 mls/hr ONCE ONCE IV 02/21/25 04:15 02/21/25 15:44 02/21/25 04:39 100 MLS/HR Sodium Chloride 1,000 ml @ 1,000 mls/hr Q1H ONCE IV 02/21/25 01:15 02/21/25 02:14 DC 02/21/25 01:15 1,000 MLS/HR Sodium Chloride 1,000 ml @ 1,000 mls/hr Q1H ONCE IV 02/21/25 04:15 02/21/25 05:14 DC 02/21/25 04:15 1,000 MLS/HR Vasopressin 20 units/Sodium Chloride 100 ml @ 9 mls/hr Q11H7M IV 02/21/25 03:15 02/21/25 02:30 9 MLS/HR Assessment/Plan Assessment/Plan Cardiac arrest S/P CPR with ROSC S/P intubation on mechanical ventilator Acute respiratory failure Sepsis Acute kidney injury, unknown, CKD Metabolic acidosis Elevated BNP Troponin DM Hx Cancer Left BKA Plan Admit ICU Pulmonology consult. Bronchodilators. As needed a supplemental O2 to maintain oxygen saturation greater than 93%. Ventilator/sedation management per lmonology. Cardiology consult. Echocardiogram. Vasopressors to maintain MAP > 65, ASA Neurology Consult. Nephrology consult. Monitor BMP. Bicarb drip. Infectious disease consult. Blood cultures pending. UA, urine cultures pending. Blood glucose checks with regular insulin sliding scale coverage. Broad-spectrum IV ABX Pressure ulcer precautions GI ppx protonix / dvt ppx lovenox Condition critical. Given comorbidities prognosis poor. 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 ) My Orders Orders - ALY MA NP Procedure Category Date Status Time Communication Order ORDERS 02/21/25 Transmitted 05:50 Nitroglycerin PHA 02/21/25 Logged Sublingual (Ntrostat 06:45 Morphine Sulfate PHA 02/21/25 Logged Injection 06:45 Stat Ekg For Chest [facility] 02/21/25 In Process Pain 06:31 Notify Of Changes [facility] 02/21/25 In Process From Base 06:31 Physician Practice Coordinator For [facility] 02/21/25 In Process 24 Hours 06:31 Emergency Dysrhythmia [facility] 02/21/25 In Process Protocol 06:31 Rhythm Strips Once [facility] 02/21/25 In Process Every Shift 06:31 Oxygen By Nasal RT 02/21/25 Transmitted Cannula 06:31 Complete Blood Count LAB 02/22/25 Verified 05:00 Complete Blood Count LAB 02/23/25 Verified 05:00 Complete Blood Count LAB 02/24/25 Verified 05:00 Complete Blood Count LAB 02/25/25 Verified 05:00 Complete Blood Count LAB 02/26/25 Verified 05:00 Complete Blood Count LAB 02/27/25 Verified 05:00 Complete Blood Count LAB 02/28/25 Verified 05:00 Complete Blood Count LAB 03/01/25 Verified 05:00 Complete Blood Count LAB 03/02/25 Verified 05:00 Basic Metabolic Panel LAB 02/22/25 Verified 05:00 Basic Metabolic Panel LAB 02/23/25 Verified 05:00 Basic Metabolic Panel LAB 02/24/25 Verified 05:00 Basic Metabolic Panel LAB 02/25/25 Verified 05:00 Basic Metabolic Panel LAB 02/26/25 Verified 05:00 Basic Metabolic Panel LAB 02/27/25 Verified 05:00 Basic Metabolic Panel LAB 02/28/25 Verified 05:00 Basic Metabolic Panel LAB 03/01/25 Verified 05:00 Basic Metabolic Panel LAB 03/02/25 Verified 05:00 Echo 2d Mode Cardiac US 02/21/25 Logged DOP 06:31 Urine Bacterial SEGUN 02/21/25 In Process Culture 06:31 Communication Order ORDERS 02/21/25 Transmitted 06:31 Troponin-I Hs LAB 02/21/25 Logged 14:00 Troponin-I Hs LAB 02/21/25 Logged 22:00 *Consult CONS 02/21/25 Transmitted 06:31 * Cardiology Consult CONS 02/21/25 Transmitted 06:31 * Infectious [place]- CONS 02/21/25 Transmitted K Mario Alberto 06:31 Vancomycin Per PHA 02/21/25 Logged Pharmacy 06:45 Cefepime 1gm/50ml PHA 02/21/25 Logged (Maxipime 1gm/50ml) 10:00 *[facility] CONS 02/21/25 Transmitted -[place] 06:31 Acetaminophen PHA 02/21/25 Logged Suppository (Tylenol 06:45 Lactic Acid W/ Reflex LAB 02/21/25 Logged Order 10:00 Enoxaparin Sodium PHA 02/21/25 Logged (Lovenox) 10:00 Pantoprazole PHA 02/21/25 Logged (Protonix) 10:00 Glucose Blood PHA 02/21/25 Logged (Accu-Chek Comfort 08:00 Insulin R (Human) PHA 02/21/25 Logged (Insulin R) 08:00 Dextrose 50% Syringe PHA 02/21/25 Logged 07:15 * Neurology Consult CONS 02/21/25 Transmitted 07:21 Admit ADMIT 02/21/25 Transmitted 07:34 Nitroglycerin PHA 02/21/25 Transmitted Sublingual (Ntrostat 07:45 Morphine Sulfate PHA 02/21/25 Transmitted Injection 07:45 Stat Ekg For Chest [facility] 02/21/25 In Process Pain 07:34 Notify Md Of Changes [facility] 02/21/25 In Process From Base 07:34 Physician Practice Coordinator For [facility] 02/21/25 In Process 24 Hours 07:34 Emergency Dysrhythmia [facility] 02/21/25 In Process Protocol 07:34 Rhythm Strips Once [facility] 02/21/25 In Process Every Shift 07:34 Oxygen By Nasal RT 02/21/25 Transmitted Cannula 07:34 Date of Service: Feb 21, 2025 Billing Provider: KRISTY UMAÑA MD Common Visit Codes: NOT BILLABLE KRISTY UMAÑA MD 02/21/25 1448: Review of Systems Allergies: Coded Allergies: UNOBTAINABLE (Unverified , 02/21/25) Additional Comments Additional Comments Additional Comments Patient's chart is reviewed and discussed with the nurse practitioner. Patient is seen evaluated and admitted by nurse practitioner this morning. I agree with his evaluation, documentation, assessment and care plan as outlined. ALY MA NP Feb 21, 2025 07:54 KRISTY UMAÑA MD Feb 21, 2025 14:48
[2025-02-21] MEDS ORDERED: MORPHINE SULFATE 4 MG/ML SYR/VIAL IV PRN ×2 (08:00→14:00)
[2025-02-21] MEDS: InsuLIN REG 1unit/0.01ml Soln (100units/ml) SC SCH (08:00)
[2025-02-21] MEDS: PROPOFOL 100 ML IV ONE (08:14)
[2025-02-21] MEDS: ACCU-CHEK COMFORT CURVE STRIP VI SCH (08:17)
[2025-02-21] MEDS: fentaNYL Drip 2500mCg/250mlNS 250 ML IV SCH (09:00)
[2025-02-21 09:21] LABS: Protein, Urine 145.9 mg/dL (1-14)
[2025-02-21] MEDS: VANCOMYCIN 1GM/250ML KIT 250 ML IV SCH (09:30)
[2025-02-21] MEDS ORDERED: CEFEPIME 1GM/50ML 50 ML IV SCH (10:00)
[2025-02-21] MEDS ORDERED: PANTOPRAZOLE 40 MG/10 ML VIAL INJ IV SCH (10:00)
[2025-02-21] MEDS ORDERED: ENOXAPARIN SOD 40 MG/0.4 ML SYRINGE SC SCH (10:00)
[2025-02-21 10:13] LABS: Base Excess -8.6 mmol/L (-2.0-3.0)
[2025-02-21 10:48] LABS: Hematocrit 25.8 % (41.0-53.0)
[2025-02-21 10:50] LABS: Hemoglobin 7.9 g/dL (13.5-17.5); Mean Corpuscular Hemoglobin 28.6 pg (28.0-32.0); Mean Corpuscular Volume 92.7 fL (80.0-100.0)
[2025-02-21 10:54] LABS: Anion Gap 19 (5-15); Chloride 107 mmol/L (98-107); Potassium 5.1 mmol/L (3.5-5.1)
[2025-02-21 11:00] LABS: BUN/Creatinine Ratio 25.6 (10.0-20.0)
[2025-02-21 11:02] LABS: Blood Urea Nitrogen 55 mg/dL (9-23); Calcium 7.9 mg/dL (8.7-10.4); Carbon Dioxide 19 mmol/L (20-31); Glucose 351 mg/dL (74-106); Sodium 145 mmol/L (136-145)
--- NOTE | 2025-02-21 11:10 | DVH ---
INDICATION: CHAY TECHNIQUE: Multiple real-time sonographic images of the kidneys and bladder were obtained. COMPARISON: US KIDNEY on DOS: 02/06/25 FINDINGS: The right kidney measures 9 cm in length, which is normal in size. No hydronephrosis. The left kidney measures 11 cm in length, which is normal in size. No hydronephrosis. Bilateral increased echogenicity is noted IMPRESSION: Bilateral medical renal disease.
[2025-02-21] MEDS ORDERED: SODIUM CHLORIDE 0.9% 500 ML IV ONE (11:30)
[2025-02-21] MEDS ORDERED: AMIODARONE BOLUS KIT 100 ML IV ONE (11:30)
--- NOTE | 2025-02-21 11:37 | DVHCONRES ---
Date Seen: Feb 21, 2025 Resident Creating Document: BIN BREWER RESIDENT Referring Physician Josh RÍOS Reason for Consultation Sepsis unknown source, S/P cardiac arrest with ROSC. History of Present Illness This is a 74-year-old male with past medical history of hypertension, type 2 diabetes, prostate cancer who was on radiation 1/2 way done (no chemo), past history of skin right shoulder cancer (unspecified). Per son, patient was recently hospitalized at [facility] for a possible heart attack two weeks ago and was flew to [facility]. 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 After extensive IV antibiotic treatment patient was relatively stable and was discharged to SNF. In the route to SNF, patient underwent cardiac arrest, per EMS patient was down for 17 minutes when CPR was started. ROS was obtained and patient reached ED at [facility]. On admission, the patient was intubated and placed on mechanical ventilation. Patient was started on IV antibiotics vancomycin and cefepime. Patient was placed on vasopressors. Patient is currently on Levophed 28 micrograms/minute, vasopressin 0.03, epinephrine nine. Urinalysis came back suggestive significant UTI. Chest x-ray is showing small bilateral pleural effusions with decreased lung volumes more prominent in the left lung. CT scan of the head was unremarkable. CT scan of the abdomen and pelvis showed bilateral lower lobe consolidations with fluid filled small bowel loops and liquid stool throughout the colon which might be due to enteric colitis. There was also body wall anasarca. Renal ultrasound was ordered as well. Family is currently signing DNR DNI form since dose were the wishes of the patient. ROS unable to obtain due to patient status Past Medical History Primary hypertension, type 2 diabetes, prostate cancer, skin right shoulder cancer unspecified Past Surgical History Recent left lower extremity below-knee amputation Family History Noncontributory Social History Unknown Allergies: Coded Allergies: UNOBTAINABLE (Unverified , 02/21/25) Current Medications Current Medications Medications (Trade) Dose Ordered Sig/Catherine Route PRN Reason Start Time Stop Time Status Last Admin Epinephrine HCl 250 ml @ 7.5 mls/hr Q24H IV 02/21/25 01:45 02/21/25 07:45 Epinephrine HCl 250 ml @ 7.5 mls/hr Q24H IV 02/21/25 02:00 02/21/25 07:51 DC 02/21/25 01:39 Norepinephrine Bitartrate 250 ml @ 3.75 mls/hr Q24H IV 02/21/25 02:00 02/21/25 01:39 Vasopressin 20 units/Sodium Chloride 100 ml @ 9 mls/hr Q11H7M IV 02/21/25 03:15 02/21/25 02:30 Midazolam HCl 50 ml @ 1 mls/hr Q24H IV 02/21/25 05:15 02/21/25 05:00 Nitroglycerin (Ntrostat Sublingual) 0.4 mg Q5MINP PRN SL FOR CHEST PAIN 02/21/25 06:45 Morphine Sulfate 2 mg Q30M PRN IV FOR CHEST PAIN 02/21/25 06:45 UNV Vancomycin HCl 0 ml @ 0 mls/hr UD IV 02/21/25 06:45 Cefepime HCl 50 ml @ 50 mls/hr BID IV 02/21/25 10:00 Acetaminophen (Tylenol Suppository) 650 mg Q6HP PRN MT fever 02/21/25 06:45 Enoxaparin Sodium (Lovenox) 40 mg DAILY SC 02/21/25 10:00 Pantoprazole Sodium (Protonix) 40 mg DAILY IV 02/21/25 10:00 Diagnostic Test (Pha) (Accu-Chek Comfort Curve T) 1 strip IQ4HR 02/21/25 08:00 02/21/25 08:17 Insulin Human Regular (InsuLIN R) IQ4HR SC 02/21/25 08:00 Dextrose 50 ml UD PRN IV Blood Sugar LESS THAN 60 02/21/25 07:15 Nitroglycerin (Ntrostat Sublingual) 0.4 mg Q5MINP PRN SL FOR CHEST PAIN 02/21/25 07:45 UNV Morphine Sulfate 2 mg Q30M PRN IV FOR CHEST PAIN 02/21/25 07:45 UNV Morphine Sulfate 2 mg Q30MIN PRN IV for chest pain 02/21/25 08:00 Fentanyl Citrate 250 ml @ 2.5 mls/hr Q24H IV 02/21/25 08:15 02/21/25 09:00 Vancomycin HCl 250 ml @ 250 mls/hr Q1H IV 02/21/25 09:30 02/21/25 11:29 Review of Systems ROS unable to obtain due to patient's current status Vital Signs Vital Signs Date Time Temp Pulse Resp B/P (MAP) Pulse Ox O2 Delivery O2 Flow Rate FiO2 02/21/25 10:34 141 22 107/62 (77) 100 50 02/21/25 08:11 Mechanical Ventilator 02/21/25 08:00 94.8 94.8 Physical Exam Physical Examination General: Patient is currently sedated on mechanical ventilation on the following parameters: VT 450, if 18, FiO2 50%, PEEP 5.0, sat 100% HEENT: Normocephalic, atraumatic, moist mucous membranes Respiratory/pulmonary: There are decreased breath sounds bilaterally but no significant crackles or wheezing at this time. Cardiovascular: tachycardic heart sounds S1 and S2 with no associated murmurs Abdomen: Abdomen nondistended, there is no pain to palpation in any of the abdominal quadrants, no palpable masses. Extremities: Left lower extremity has a below-knee amputation. Right lower extremity grossly unremarkable without edema. Skin: No rashes or pruritus, there is no sacral edema present at this time. Neurological: Patient is currently sedated and intubated. RASS -3 Labs/Diagnostic Data Labs Test 02/21/25 10:29 02/21/25 09:46 02/21/25 06:55 02/21/25 04:25 Range/Units White Blood Count 40.8 #*H 4.4-10.8 10^3/uL Red Blood Count 2.78 L 4.5-5.90 10^6/uL Hemoglobin 7.9 L 13.5-17.5 g/dL Hematocrit 25.8 L 41.0-53.0 % Mean Corpuscular Volume 92.7 # 80.0-100.0 fL Mean Corpuscular Hemoglobin 28.6 28.0-32.0 pg Mean Corpuscular Hemoglobin Concent 30.8 L 32.0-36.0 g/dL Red Cell Distribution Width 16.8 H 11.8-14.3 % Platelet Count 310 140-450 10^3/uL Mean Platelet Volume 8.3 6.9-10.8 fL Neutrophils (%) (Auto) 37.0-80.0 % Lymphocytes (%) (Auto) 10.0-50.0 % Monocytes (%) (Auto) 0.0-12.0 % Basophils (%) (Auto) 0.0-2.0 % Neutrophils # (Auto) 1.6-8.6 10 ^3/uL Lymphocytes # (Auto) 0.4-5.4 10 ^3/uL Monocytes # (Auto) 0-1.3 10 ^3/uL Sodium Level 145 136-145 mmol/L Potassium Level 5.1 3.5-5.1 mmol/L Chloride Level 107 98-107 mmol/L Carbon Dioxide Level 19 L 20-31 mmol/L Anion Gap 19 H 5-15 Blood Urea Nitrogen 55 H 9-23 mg/dL Creatinine 2.15 H 0.700-1.30 mg/dL Glomerular Filtration Rate Calc 31 >90 mL/min BUN/Creatinine Ratio 25.6 H 10.0-20.0 Serum Glucose 351 #H 74-106 mg/dL Lactic Acid Level 9.1 *H 0.4-2.0 mmol/L Calcium Level 7.9 L 8.7-10.4 mg/dL Blood Gas Specimen Type Arterial Blood Gas Sample Site Left radial Blood Gas Patient Temperature 37.0 Arterial Blood Date Drawn [id number] Arterial Blood pH 7.327 L 7.350-7.450 Arterial Blood Partial Pressure CO2 32.2 L 35.0-48.0 mmHg Arterial Blood Partial Pressure O2 105.5 83.0-108.0 mmHg Arterial Blood HCO3 16.5 L 21.0-28.0 mmol/L Arterial Blood Oxygen Saturation 97.5 94.0-98.0 % Arterial Blood Base Excess -8.6 L -2.0-3.0 mmol/L Arterial Blood Oxyhemoglobin 96.2 94.0-98.0 % Arterial Blood Carboxyhemoglobin 0.8 0.5-1.5 % Arterial Blood Methemoglobin 0.5 0.0-1.5 % Cricket Test Modified Blood Gas Total Hemoglobin 9.00 L 13.5-17.5 g/dL Blood Gas Set Respiration Rate 18.0 Blood Gas Modality Vent - ac FiO2 % 50.0 Blood Gas Tidal Volume 450.0 Blood Gas PEEP or CPAP 5.0 Urine Color Yellow Yellow Urine Clarity Cloudy H Clear Urine pH 5.5 5.0-9.0 Urine Specific Damar 1.013 1.001-1.035 Urine Protein 2+ H Negative Urine Ketones Negative Negative Urine Blood 2+ H Negative /uL Urine Nitrite Negative Negative Urine Bilirubin Negative Negative Urine Urobilinogen Normal Negative mg/dL Urine Leukocyte Esterase 3+ Negative /uL Urine RBC 240 0 - 3 /hpf Urine WBC Clumps Present None Seen /hpf Urine Microscopic WBC 2949 H 0-3 /HPF Urine Squamous Epithelial Cells None seen <5 /hpf Urine Bacteria None seen None Seen /hpf Urine Yeast with Hyphae Present /hpf Urine Yeast (Budding) Moderate None Seen /hpf Urine Creatinine 44.11 30.0-125.0 mg/dL Urine Protein/Creatinine Ratio 3.31 Urine Sodium 40 40-220 mmol/L Urine Glucose 1+ H Normal mg/dL Urine Total Protein 145.9 H 1-14 mg/dL Troponin I High Sensitivity 527 *H </=54 ng/L Test 02/21/25 02:48 02/21/25 01:22 Range/Units Blood Gas Critical Value Read Back Yes Blood Gas Notified Whom Dr. kwame hernandez Blood Gas Notified Time [id number] Blood Gas Notified By Trey sanford rcp Magnesium Level 2.5 1.6-2.6 mg/dL Total Bilirubin 0.6 0.2-1.0 mg/dL Aspartate Amino Transferase (AST) 252 H 13-40 U/L Alanine Aminotransferase (ALT) 265 H 7-40 U/L Alkaline Phosphatase 173 H 46-116 U/L B-Type Natriuretic Peptide 520.13 0-100 pg/mL Total Protein 5.0 L 5.7-8.2 g/dL Albumin 2.7 L 3.2-4.8 g/dL Assessment Assessment/plan Septic shock likely due to UTI Possible aspiration pneumonia Status post cardiac arrest with ROSC Status post left lower extremity below-knee amputation Primary hypertension Type 2 diabetes mellitus Prostate cancer, received radiation, no chemo History of skin cancer of the right shoulder Plan -continue IV antibiotics, vancomycin and cefepime. -ordered blood cultures, sputum cultures and urine cultures -on mechanical ventilation on the following parameters: VT 450, if 18, FiO2 50%, PEEP 5.0 sat 100%. Last ABG showed pH of 7.32, pCO2 of 32.2, HC03 of 16.5 and PaO2 of 105.5. Consistent with acute metabolic acidosis with respiratory compensation per law formula. -continue pressors jeffers titrated off as tolerated -patient is DNR/DNI, family are thinking about comfort cares -Poor prognosis, if family decideds we will dc abs. Goals of care discussed with the son and grandson at bedside, DNR DNI 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 Dr. Llanes 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: BIN Hurley RESIDENT Feb 21, 2025 11:37
[2025-02-21] MEDS ORDERED: AMIODARONE 360mg/200mL PREMIX 200 ML IV ONE (11:45)
[2025-02-21] MEDS ORDERED: EPINEPHrine HCL 1 MG/10 ML SYRG IV ONE (11:51)
[2025-02-21 12:01] LABS: Anisocytosis Slight; Total Cells Counted 100.0 (100)
--- NOTE | 2025-02-21 12:17 | DVHINCON2 ---
Neuro Consultation Date of Consultation Date: 02/21/25 History of Present Illness History of Present Illness: Louie Patel is a 74 year old male who presents with after cardiac arrest Per notes, patient had cardiac arrest presented at 00:55 and had multiple arrest, final ROSC was at 2:07. Unclear total time down. Review of Systems Review of Systems: Review of Systems: 12 point review of systems is negative unless stated in HPI. Allergies and Medications Allergies: Coded Allergies: UNOBTAINABLE (Unverified , 02/21/25) Current Medications: General Examination Last Vital sign Labs: Laboratory Tests Test 02/21/25 01:22 02/21/25 02:10 02/21/25 02:48 02/21/25 03:32 Range/Units White Blood Count 25.1 H 4.4-10.8 10^3/uL Red Blood Count 2.84 L 4.5-5.90 10^6/uL Hemoglobin 8.3 L 13.5-17.5 g/dL Hematocrit 27.6 L 41.0-53.0 % Mean Corpuscular Volume 97.4 80.0-100.0 fL Mean Corpuscular Hemoglobin 29.1 28.0-32.0 pg Mean Corpuscular Hemoglobin Concent 29.9 L 32.0-36.0 g/dL Red Cell Distribution Width 17.0 H 11.8-14.3 % Platelet Count 281 140-450 10^3/uL Mean Platelet Volume 8.0 6.9-10.8 fL Neutrophils (%) (Auto) 37.0-80.0 % Lymphocytes (%) (Auto) 10.0-50.0 % Monocytes (%) (Auto) 0.0-12.0 % Basophils (%) (Auto) 0.0-2.0 % Neutrophils # (Auto) 1.6-8.6 10 ^3/uL Lymphocytes # (Auto) 0.4-5.4 10 ^3/uL Monocytes # (Auto) 0-1.3 10 ^3/uL Differential Total Cells Counted 100.0 100 Neutrophils % (Manual) 79 37.0-80.0 Band Neutrophils % (Manual) 3 Lymphocytes % (Manual) 16 10.0-50.0 Monocytes % (Manual) 2 0-12 Eosinophils % (Manual) 0 0-7 Basophils % (Manual) 0 0.0-2.0 Metamyelocytes % (manual) 0 Myelocytes % (Manual) 0 Promyelocytes % (Manual) 0 Blast Cells % (Manual) 0 Reactive Lymphocytes 0 Platelet Estimate Adequate Sodium Level 148 H 136-145 mmol/L Potassium Level 5.1 3.5-5.1 mmol/L Chloride Level 106 98-107 mmol/L Carbon Dioxide Level 20 20-31 mmol/L Anion Gap 22 H 5-15 Blood Urea Nitrogen 54 H 9-23 mg/dL Creatinine 1.74 H 0.700-1.30 mg/dL Glomerular Filtration Rate Calc 40 >90 mL/min BUN/Creatinine Ratio 31.0 H 10.0-20.0 Serum Glucose 231 H 74-106 mg/dL Lactic Acid Level 11.8 *H 12.5 *H 0.4-2.0 mmol/L Calcium Level 8.1 L 8.7-10.4 mg/dL Magnesium Level 2.5 1.6-2.6 mg/dL Total Bilirubin 0.6 0.2-1.0 mg/dL Aspartate Amino Transferase (AST) 252 H 13-40 U/L Alanine Aminotransferase (ALT) 265 H 7-40 U/L Alkaline Phosphatase 173 H 46-116 U/L Troponin I High Sensitivity 156 *H 198 *H </=54 ng/L B-Type Natriuretic Peptide 520.13 0-100 pg/mL Total Protein 5.0 L 5.7-8.2 g/dL Albumin 2.7 L 3.2-4.8 g/dL Blood Gas Specimen Type Arterial Blood Gas Sample Site Right radial Blood Gas Patient Temperature 37.0 Arterial Blood Date Drawn [id number] Arterial Blood pH 7.230 *L 7.350-7.450 Arterial Blood Partial Pressure CO2 37.9 35.0-48.0 mmHg Arterial Blood Partial Pressure O2 161.7 H 83.0-108.0 mmHg Arterial Blood HCO3 15.5 L 21.0-28.0 mmol/L Arterial Blood Oxygen Saturation 98.8 H 94.0-98.0 % Arterial Blood Base Excess -11.2 L -2.0-3.0 mmol/L Arterial Blood Oxyhemoglobin 98.0 94.0-98.0 % Arterial Blood Carboxyhemoglobin 0.2 L 0.5-1.5 % Arterial Blood Methemoglobin 0.6 0.0-1.5 % Cricket Test Modified Blood Gas Total Hemoglobin 9.70 L 13.5-17.5 g/dL Blood Gas Set Respiration Rate 18.0 Blood Gas Modality Vent - ac FiO2 % 100.0 Blood Gas Tidal Volume 450.0 Blood Gas PEEP or CPAP 5.0 Blood Gas Critical Value Read Back Yes Blood Gas Notified Whom Dr. kwame hernandez Blood Gas Notified Time [id number] Blood Gas Notified By Trey sanford maintenance technician 2nd shift Test 02/21/25 04:25 02/21/25 06:55 02/21/25 09:46 02/21/25 10:29 Range/Units Troponin I High Sensitivity 527 *H </=54 ng/L Urine Color Yellow Yellow Urine Clarity Cloudy H Clear Urine pH 5.5 5.0-9.0 Urine Specific [place] 1.013 1.001-1.035 Urine Protein 2+ H Negative Urine Ketones Negative Negative Urine Blood 2+ H Negative /uL Urine Nitrite Negative Negative Urine Bilirubin Negative Negative Urine Urobilinogen Normal Negative mg/dL Urine Leukocyte Esterase 3+ Negative /uL Urine RBC 240 0 - 3 /hpf Urine WBC Clumps Present None Seen /hpf Urine Microscopic WBC 2949 H 0-3 /HPF Urine Squamous Epithelial Cells None seen <5 /hpf Urine Bacteria None seen None Seen /hpf Urine Yeast with Hyphae Present /hpf Urine Yeast (Budding) Moderate None Seen /hpf Urine Creatinine 44.11 30.0-125.0 mg/dL Urine Protein/Creatinine Ratio 3.31 Urine Sodium 40 40-220 mmol/L Urine Glucose 1+ H Normal mg/dL Urine Total Protein 145.9 H 1-14 mg/dL Blood Gas Specimen Type Arterial Blood Gas Sample Site Left radial Blood Gas Patient Temperature 37.0 Arterial Blood Date Drawn [id number] Arterial Blood pH 7.327 L 7.350-7.450 Arterial Blood Partial Pressure CO2 32.2 L 35.0-48.0 mmHg Arterial Blood Partial Pressure O2 105.5 83.0-108.0 mmHg Arterial Blood HCO3 16.5 L 21.0-28.0 mmol/L Arterial Blood Oxygen Saturation 97.5 94.0-98.0 % Arterial Blood Base Excess -8.6 L -2.0-3.0 mmol/L Arterial Blood Oxyhemoglobin 96.2 94.0-98.0 % Arterial Blood Carboxyhemoglobin 0.8 0.5-1.5 % Arterial Blood Methemoglobin 0.5 0.0-1.5 % Cricket Test Modified Blood Gas Total Hemoglobin 9.00 L 13.5-17.5 g/dL Blood Gas Set Respiration Rate 18.0 Blood Gas Modality Vent - ac FiO2 % 50.0 Blood Gas Tidal Volume 450.0 Blood Gas PEEP or CPAP 5.0 White Blood Count 40.8 #*H 4.4-10.8 10^3/uL Red Blood Count 2.78 L 4.5-5.90 10^6/uL Hemoglobin 7.9 L 13.5-17.5 g/dL Hematocrit 25.8 L 41.0-53.0 % Mean Corpuscular Volume 92.7 # 80.0-100.0 fL Mean Corpuscular Hemoglobin 28.6 28.0-32.0 pg Mean Corpuscular Hemoglobin Concent 30.8 L 32.0-36.0 g/dL Red Cell Distribution Width 16.8 H 11.8-14.3 % Platelet Count 310 140-450 10^3/uL Mean Platelet Volume 8.3 6.9-10.8 fL Neutrophils (%) (Auto) 37.0-80.0 % Lymphocytes (%) (Auto) 10.0-50.0 % Monocytes (%) (Auto) 0.0-12.0 % Basophils (%) (Auto) 0.0-2.0 % Neutrophils # (Auto) 1.6-8.6 10 ^3/uL Lymphocytes # (Auto) 0.4-5.4 10 ^3/uL Monocytes # (Auto) 0-1.3 10 ^3/uL Differential Total Cells Counted 100.0 100 Neutrophils % (Manual) 89 H 37.0-80.0 Band Neutrophils % (Manual) 5 Lymphocytes % (Manual) 3 L 10.0-50.0 Monocytes % (Manual) 3 0-12 Eosinophils % (Manual) 0 0-7 Basophils % (Manual) 0 0.0-2.0 Metamyelocytes % (manual) 0 Myelocytes % (Manual) 0 Promyelocytes % (Manual) 0 Blast Cells % (Manual) 0 Reactive Lymphocytes 0 Platelet Estimate Adequate Hypochromasia (manual) Moderate Anisocytosis (manual) Slight Sodium Level 145 136-145 mmol/L Potassium Level 5.1 3.5-5.1 mmol/L Chloride Level 107 98-107 mmol/L Carbon Dioxide Level 19 L 20-31 mmol/L Anion Gap 19 H 5-15 Blood Urea Nitrogen 55 H 9-23 mg/dL Creatinine 2.15 H 0.700-1.30 mg/dL Glomerular Filtration Rate Calc 31 >90 mL/min BUN/Creatinine Ratio 25.6 H 10.0-20.0 Serum Glucose 351 #H 74-106 mg/dL Lactic Acid Level 9.1 *H 0.4-2.0 mmol/L Calcium Level 7.9 L 8.7-10.4 mg/dL MABEL YUEN MD Feb 21, 2025 12:17
[2025-02-21] MEDS ORDERED: LORazepam 2MG/ML-1ML VIAL IV PRN ×2 (13:00→13:30)
[2025-02-21] MEDS ORDERED: FUROSEMIDE 40 MG/4 ML VIAL IV ONE (13:00)
[2025-02-21] MEDS ORDERED: HYOSCYAMINE SULF 0.125 MG ODT TAB SL PRN (13:45)
[2025-02-21] MEDS ORDERED: ATROPINE SULF 1 MG/10ml SYR IV ONE (14:41)
[2025-02-21] MEDS ORDERED: SODIUM BICARB 8.4% 50Meq/50ml SYR INJ IV ONE (14:44)
--- NOTE | 2025-02-21 14:57 | DVHPN2 ---
Progress Note - Dictate Date Seen: Feb 21, 2025 Medical Necessity Reason Pt with a Central, PICC or Fol: Yes Subjective Patient is seen and evaluated by me earlier today along with the nurse at bedside as well as family in the ICU. Patient's medical records and chart is reviewed from [facility]. Patient's record is also reviewed from this hospitalization. Currently he is on three different pressors. On sedation with Versed and fentanyl. vital signs Vital Sign Date Time Temp Pulse Resp B/P (MAP) Pulse Ox O2 Delivery O2 Flow Rate FiO2 02/21/25 13:45 97.7 94 20 80/44 (56) 98 207.9 02/21/25 12:26 35 02/21/25 08:11 Mechanical Ventilator Total Intake and Output 02/20/25 02/20/25 02/21/25 15:00 23:00 07:00 Intake Total 1639.387 ml Balance 1639.387 ml medications Current Medications Medications Dose Ordered Sig/Catherine Route Start Time Stop Time Status Last Admin Dose Admin Morphine Sulfate 2 mg Q30M PRN IV 02/21/25 06:45 UNV Nitroglycerin 0.4 mg Q5MINP PRN SL 02/21/25 07:45 UNV Morphine Sulfate 2 mg Q30M PRN IV 02/21/25 07:45 UNV Morphine Sulfate 2 mg Q2HPRN PRN IV 02/21/25 13:00 UNV Lorazepam 2 mg Q2HP PRN IV 02/21/25 13:00 Morphine Sulfate 2 mg Q2HPRN PRN IV 02/21/25 13:30 UNV Lorazepam 2 mg Q2HPRN PRN IV 02/21/25 13:30 UNV Hyoscyamine 0.125 mg Q4HPRN PRN SL 02/21/25 13:45 Morphine Sulfate 2 mg Q2HPRN PRN IV 02/21/25 14:00 objective HEENT exam notable for dilated and fixed pupils. Heart regular rate and rhythm tachycardia S1 plus S2. Lungs fair air movement without any audible wheezing. Abdomen soft positive bowel sounds nontender. Extremities patient has left below-knee amputation with a dressing in place. Right lower extremity notable for positive edema. laboratory and microbiology Laboratory Tests 02/21/25 10:29 Test 02/21/25 10:29 Range/Units Serum Glucose 351 #H 74-106 mg/dL Assessment/Plan Patient status post cardiac arrest and CPR x 4 times. His family including Basim his son who is the durable power of attorney recruiter is at bedside. After reviewing the chart I had a family meeting along with the nurse at bedside with the family members and the son. Discussed with them that the reason for his cardiac arrest is unclear, that the possibilities include but not limited to acute AL, acute pulmonary embolism, sepsis vs. other causes. I have advised them the options at this time is to look for the cause with further investigative studies and give him another 24 hours to repeat the head CT for any anoxic brain injury and decide based on his clinical condition steady results the next plan of care. However patient's son tells me that Mr. Jorge Palma has advance directive and he did not want to be intubated or cardiopulmonary resuscitated. Given his wishes, son is requesting patient to be taken off the ventilator with a terminal wean and compassionate extubation and stopping all active treatments as soon as possible. Basim the son and family members verbalized understanding of that once compassionate extubation is done that he may pass away and verbalized understand his imminent . They want to proceed with a terminal wean and compassionate extubation as soon as possible. Given their wishes we will proceed with compassionate extubation. Problems(with codes): (1) Cardiac arrest 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: Son, Other KRISTY UMAÑA MD Feb 21, 2025 14:57
--- NOTE | 2025-02-21 15:27 | DVHSR ---
APPROVED REPORT EXAM: Two-dimensional and M-mode echocardiogram with Doppler and color Doppler. Blood Pressure: 139/51 mmHg INDICATION Heart Failure S/P CPR RISK FACTORS Height: 5'8", Weight: 231 DIMENSIONS LVDd3.4 (3.8-5.7cm)LA (2D)4.4 (1.9-4.0cm)Aortic Root2.8 (2.0-3.7cm) LVDs2.7 (2.5-4.0cm)LA (MM) (1.9-4.0cm)Aortic Cusp Exc1.7 (1.5-2.0cm) EF (%) 43.0 (55-70%)Rt. Atrium (1.9-4.0cm)Asc. Aorta2.7 cm IVSd1.2 (0.7-1.1cm)RV (D) (1.8-2.4cm) PWd1.3 (0.7-1.1cm) Mitral Valve MitralMitral Stenosis E/A ratio0.02D MVAcm2 Aortic Valve Aortic ValveAortic Stenosis V10.90m/Lauren Mean GR.3mmHg V21.19m/Lauren Peak GR.6mmHg LVOT Diameter1.9 (1.8-2.4cm)Doppler AVA2.14cm2 Other Information Quality : Technically LimitedRhythm : Technically limited study due to on vent and heart rate. Conclusion lvef 30% severe lvh severe dysfunctio HR very elevated pleural effusion noted L sided
--- NOTE | 2025-02-21 16:00 | DVHDS2 ---
Summary Date of Admission Feb 21, 2025 at 07:34 Date and Time of Expiration: Feb 21, 2025 15:26 Reason for Admission: Cardiac arrest Labs/Diagnostic Data: Laboratory Results Test 02/21/25 10:29 02/21/25 09:46 02/21/25 06:55 02/21/25 04:25 White Blood Count 40.8 10^3/uL (4.4-10.8) Red Blood Count 2.78 10^6/uL (4.5-5.90) Hemoglobin 7.9 g/dL (13.5-17.5) Hematocrit 25.8 % (41.0-53.0) Mean Corpuscular Volume 92.7 fL (80.0-100.0) Mean Corpuscular Hemoglobin 28.6 pg (28.0-32.0) Mean Corpuscular Hemoglobin Concent 30.8 g/dL (32.0-36.0) Red Cell Distribution Width 16.8 % (11.8-14.3) Platelet Count 310 10^3/uL (140-450) Mean Platelet Volume 8.3 fL (6.9-10.8) Neutrophils (%) (Auto) % (37.0-80.0) Lymphocytes (%) (Auto) % (10.0-50.0) Monocytes (%) (Auto) % (0.0-12.0) Basophils (%) (Auto) % (0.0-2.0) Neutrophils # (Auto) 10 ^3/uL (1.6-8.6) Lymphocytes # (Auto) 10 ^3/uL (0.4-5.4) Monocytes # (Auto) 10 ^3/uL (0-1.3) Differential Total Cells Counted 100.0 (100) Neutrophils % (Manual) 89 (37.0-80.0) Band Neutrophils % (Manual) 5 Lymphocytes % (Manual) 3 (10.0-50.0) Monocytes % (Manual) 3 (0-12) Eosinophils % (Manual) 0 (0-7) Basophils % (Manual) 0 (0.0-2.0) Metamyelocytes % (manual) 0 Myelocytes % (Manual) 0 Promyelocytes % (Manual) 0 Blast Cells % (Manual) 0 Reactive Lymphocytes 0 Platelet Estimate Adequate Hypochromasia (manual) Moderate Anisocytosis (manual) Slight Sodium Level 145 mmol/L (136-145) Potassium Level 5.1 mmol/L (3.5-5.1) Chloride Level 107 mmol/L (98-107) Carbon Dioxide Level 19 mmol/L (20-31) Anion Gap 19 (5-15) Blood Urea Nitrogen 55 mg/dL (9-23) Creatinine 2.15 mg/dL (0.700-1.30) Glomerular Filtration Rate Calc 31 mL/min (>90) BUN/Creatinine Ratio 25.6 (10.0-20.0) Serum Glucose 351 mg/dL (74-106) Lactic Acid Level 9.1 mmol/L (0.4-2.0) Calcium Level 7.9 mg/dL (8.7-10.4) Blood Gas Specimen Type Arterial Blood Gas Sample Site Left radial Blood Gas Patient Temperature 37.0 Arterial Blood Date Drawn [id number] Arterial Blood pH 7.327 (7.350-7.450) Arterial Blood Partial Pressure CO2 32.2 mmHg (35.0-48.0) Arterial Blood Partial Pressure O2 105.5 mmHg (83.0-108.0) Arterial Blood HCO3 16.5 mmol/L (21.0-28.0) Arterial Blood Oxygen Saturation 97.5 % (94.0-98.0) Arterial Blood Base Excess -8.6 mmol/L (-2.0-3.0) Arterial Blood Oxyhemoglobin 96.2 % (94.0-98.0) Arterial Blood Carboxyhemoglobin 0.8 % (0.5-1.5) Arterial Blood Methemoglobin 0.5 % (0.0-1.5) Cricket Test Modified Blood Gas Total Hemoglobin 9.00 g/dL (13.5-17.5) Blood Gas Set Respiration Rate 18.0 Blood Gas Modality Vent - ac FiO2 % 50.0 Blood Gas Tidal Volume 450.0 Blood Gas PEEP or CPAP 5.0 Urine Color Yellow (Yellow) Urine Clarity Cloudy (Clear) Urine pH 5.5 (5.0-9.0) Urine Specific [place] 1.013 (1.001-1.035) Urine Protein 2+ (Negative) Urine Ketones Negative (Negative) Urine Blood 2+ /uL (Negative) Urine Nitrite Negative (Negative) Urine Bilirubin Negative (Negative) Urine Urobilinogen Normal mg/dL (Negative) Urine Leukocyte Esterase 3+ /uL (Negative) Urine RBC 240 /hpf (0 - 3) Urine WBC Clumps Present /hpf (None Seen) Urine Microscopic WBC 2949 /HPF (0-3) Urine Squamous Epithelial Cells None seen /hpf (<5) Urine Bacteria None seen /hpf (None Seen) Urine Yeast with Hyphae Present /hpf Urine Yeast (Budding) Moderate /hpf (None Seen) Urine Creatinine 44.11 mg/dL (30.0-125.0) Urine Protein/Creatinine Ratio 3.31 Urine Sodium 40 mmol/L (40-220) Urine Glucose 1+ mg/dL (Normal) Urine Total Protein 145.9 mg/dL (1-14) Troponin I High Sensitivity 527 ng/L (</=54) Test 02/21/25 02:48 02/21/25 01:22 Blood Gas Critical Value Read Back Yes Blood Gas Notified Whom Dr. kwame hernandez Blood Gas Notified Time [id number] Blood Gas Notified By Trey sanford rcp Magnesium Level 2.5 mg/dL (1.6-2.6) Total Bilirubin 0.6 mg/dL (0.2-1.0) Aspartate Amino Transferase (AST) 252 U/L (13-40) Alanine Aminotransferase (ALT) 265 U/L (7-40) Alkaline Phosphatase 173 U/L (46-116) B-Type Natriuretic Peptide 520.13 pg/mL (0-100) Total Protein 5.0 g/dL (5.7-8.2) Albumin 2.7 g/dL (3.2-4.8) Other Laboratory Tests 02/21/25 10:29 Brief Hx & Hospital Course: Information in this HPI is limited due to the patient's critical condition. Mainly acquired from EHR and ER physician. As per the ER physician patient was being [facility] to a correction facility last night. While EN route patient went into cardiac arrest. As per ER physician Patient was down for 17 minutes before CPR was initiated. ROSC achieved. On arrival to the emergency department patient was intubated and placed on mechanical ventilation. During the emergency department evaluation W25.1, H&H is 8.3/27.6, PLT 281. Na 148, K5.1, anion gap 22, BUN 54, creatinine 1.74 GFR 40. AST 252, ALT 265, total bilirubin 0.6. LA 11.8/12.5. BNP 520, t roponin 156/198/1527 with the upward trend. CXR presents small bilateral pleural effusions. CT head no acute intracranial abnormality. CT abdomen and pelvis impression reads bilateral lower lobe consolidations. Fluid-filled small bowel loops and liquid stool throughout the colon findings may be seen with enteric colitis. Body wall anasarca. Under distended urinary bladder containing Alexander catheter air in the urinary bladder may be related to the presence of the Alexander catheter. Infection not excluded. This time patient is admitted for further evaluation and treatment. Patient admitted and remained critically ill in the ICU. I have evaluated the patient in the ICU and discussed with the nurse as well had a family meeting regarding his poor prognosis and plan of care. Patient's son Basim who is the DPOA decided to terminal wean and do compassionate extubation given patient's wishes to be DNR DNI. Per their wishes this was done and subsequently active medications and treatment his also turned off and transitioned to comfort care with comfort medications. Patient soon after that around 15:00 hours. I was notified by the nurse regarding patient passing away. Final Diagnosis/Problems List Cardiac arrest S/P CPR with ROSC S/P intubation on mechanical ventilator Acute respiratory failure Sepsis Acute kidney injury, unknown, CKD Metabolic acidosis Elevated BNP Troponin DM Hx Cancer Left BKA Problems List: (1) Cardiac arrest Status: Acute (2) Respiratory failure with hypoxia Status: Acute (3) Type 2 diabetes mellitus with hyperglycemia Status: Acute [facility] Feb 21, 2025 16:00
--- NOTE | 2025-02-21 17:13 | DVHCONRES ---
Date Seen: Feb 21, 2025 Resident Creating Document: IMTIAZ RICE RESIDENT Referring Physician KHUSHBU Cheema Reason for Consultation CHAY /metabolic acidosis History of Present Illness Information in this HPI is limited due to the patient's critical condition. Mainly acquired from EHR and ER physician. As per the ER physician patient was being transported from [facility] to a intermediate facility last night. While EN route patient went into cardiac arrest. As per ER physician Patient was down for 17 minutes before CPR was initiated. ROSC achieved. On arrival to the emergency department patient was intubated and placed on mechanical ventilation. Patient was seen and examined on the bedside in ICU. He is on mechanical ventilation with FiO2 50%, peep 5, tidal volume 450 mL. Family decided terminal weaning for the patient. Past Medical History Hypertension, type 2 diabetes mellitus, AFib with RVR, prostate cancer Past Surgical History Unknown Allergies: Coded Allergies: UNOBTAINABLE (Unverified , 02/21/25) Current Medications Current Medications Medications (Trade) Dose Ordered Sig/Catherine Route PRN Reason Start Time Stop Time Status Last Admin Epinephrine HCl 250 ml @ 7.5 mls/hr Q24H IV 02/21/25 01:45 02/21/25 13:15 DC 02/21/25 07:45 Epinephrine HCl 250 ml @ 7.5 mls/hr Q24H IV 02/21/25 02:00 02/21/25 07:51 DC 02/21/25 01:39 Norepinephrine Bitartrate 250 ml @ 3.75 mls/hr Q24H IV 02/21/25 02:00 02/21/25 13:15 DC 02/21/25 11:20 Vasopressin 20 units/Sodium Chloride 100 ml @ 9 mls/hr Q11H7M IV 02/21/25 03:15 02/21/25 13:15 DC 02/21/25 02:30 Midazolam HCl 50 ml @ 1 mls/hr Q24H IV 02/21/25 05:15 02/21/25 13:15 DC 02/21/25 05:00 Nitroglycerin (Ntrostat Sublingual) 0.4 mg Q5MINP PRN SL FOR CHEST PAIN 02/21/25 06:45 02/21/25 13:18 DC Morphine Sulfate 2 mg Q30M PRN IV FOR CHEST PAIN 02/21/25 06:45 UNV Vancomycin HCl 0 ml @ 0 mls/hr UD IV 02/21/25 06:45 02/21/25 13:15 DC Cefepime HCl 50 ml @ 50 mls/hr BID IV 02/21/25 10:00 02/21/25 13:15 DC Acetaminophen (Tylenol Suppository) 650 mg Q6HP PRN OH fever 02/21/25 06:45 02/21/25 13:15 DC Enoxaparin Sodium (Lovenox) 40 mg DAILY SC 02/21/25 10:00 02/21/25 13:15 DC Pantoprazole Sodium (Protonix) 40 mg DAILY IV 02/21/25 10:00 02/21/25 13:18 DC Diagnostic Test (Pha) (Accu-Chek Comfort Curve T) 1 strip IQ4HR 02/21/25 08:00 02/21/25 13:18 DC 02/21/25 08:17 Insulin Human Regular (InsuLIN R) IQ4HR SC 02/21/25 08:00 02/21/25 13:18 DC Dextrose 50 ml UD PRN IV Blood Sugar LESS THAN 60 02/21/25 07:15 02/21/25 13:15 DC Nitroglycerin (Ntrostat Sublingual) 0.4 mg Q5MINP PRN SL FOR CHEST PAIN 02/21/25 07:45 UNV Morphine Sulfate 2 mg Q30M PRN IV FOR CHEST PAIN 02/21/25 07:45 UNV Morphine Sulfate 2 mg Q30MIN PRN IV for chest pain 02/21/25 08:00 02/21/25 13:18 DC Fentanyl Citrate 250 ml @ 2.5 mls/hr Q24H IV 02/21/25 08:15 02/21/25 13:15 DC 02/21/25 09:00 Vancomycin HCl 250 ml @ 250 mls/hr Q1H IV 02/21/25 09:30 02/21/25 11:29 DC Furosemide (Lasix Injection) 40 mg BIDD IV 02/21/25 18:00 02/21/25 13:22 DC Morphine Sulfate 2 mg Q2HPRN PRN IV MODERATE PAIN (4-6 PAIN SCALE) 02/21/25 13:00 UNV Lorazepam (Ativan Inj) 2 mg Q2HP PRN IV ANXIETY 02/21/25 13:00 Morphine Sulfate 2 mg Q2HPRN PRN IV MODERATE PAIN (4-6 PAIN SCALE) 02/21/25 13:30 UNV Lorazepam (Ativan Inj) 2 mg Q2HPRN PRN IV ANXIETY 02/21/25 13:30 UNV Hyoscyamine (Hyoscyamine ORAL DISSOLVING TAB) 0.125 mg Q4HPRN PRN SL FOR STOMACH DISTRESS 02/21/25 13:45 Morphine Sulfate 2 mg Q2HPRN PRN IV MODERATE PAIN (4-6 PAIN SCALE) 02/21/25 14:00 Review of Systems Review of system could not be assessed as patient is intubated and on mechanical ventilation Vital Signs Vital Signs Date Time Temp Pulse Resp B/P (MAP) Pulse Ox O2 Delivery O2 Flow Rate FiO2 02/21/25 15:30 98.1 0 208.6 02/21/25 14:24 122 88 02/21/25 14:00 35 02/21/25 14:00 Mechanical Ventilator+ Physical Exam General: RASS -3, afebrile, mucosae are moist Cardiovascular: AFib with RVR, Normal S1 and S2. No murmurs, gallops or rubs Respiratory: Mechanically assisted ventilation, equal bilateral airway entree. Bilateral crackles Abdomen: Soft, nontender, no organomegaly, normal bowel sounds MSK/skin: Mobilization of limbs cannot be evaluated. Skin is dry and warm. 2+ pedal edema on the right lower extremity and left-sided below-knee amputation Neurological: Orientation cannot be assessed. No apparent motor no sensitive deficits. Pupils are non reacting and dilated Labs/Diagnostic Data Labs Test 02/21/25 10:29 02/21/25 09:46 02/21/25 06:55 02/21/25 04:25 Range/Units White Blood Count 40.8 #*H 4.4-10.8 10^3/uL Red Blood Count 2.78 L 4.5-5.90 10^6/uL Hemoglobin 7.9 L 13.5-17.5 g/dL Hematocrit 25.8 L 41.0-53.0 % Mean Corpuscular Volume 92.7 # 80.0-100.0 fL Mean Corpuscular Hemoglobin 28.6 28.0-32.0 pg Mean Corpuscular Hemoglobin Concent 30.8 L 32.0-36.0 g/dL Red Cell Distribution Width 16.8 H 11.8-14.3 % Platelet Count 310 140-450 10^3/uL Mean Platelet Volume 8.3 6.9-10.8 fL Neutrophils (%) (Auto) 37.0-80.0 % Lymphocytes (%) (Auto) 10.0-50.0 % Monocytes (%) (Auto) 0.0-12.0 % Basophils (%) (Auto) 0.0-2.0 % Neutrophils # (Auto) 1.6-8.6 10 ^3/uL Lymphocytes # (Auto) 0.4-5.4 10 ^3/uL Monocytes # (Auto) 0-1.3 10 ^3/uL Differential Total Cells Counted 100.0 100 Neutrophils % (Manual) 89 H 37.0-80.0 Band Neutrophils % (Manual) 5 Lymphocytes % (Manual) 3 L 10.0-50.0 Monocytes % (Manual) 3 0-12 Eosinophils % (Manual) 0 0-7 Basophils % (Manual) 0 0.0-2.0 Metamyelocytes % (manual) 0 Myelocytes % (Manual) 0 Promyelocytes % (Manual) 0 Blast Cells % (Manual) 0 Reactive Lymphocytes 0 Platelet Estimate Adequate Hypochromasia (manual) Moderate Anisocytosis (manual) Slight Sodium Level 145 136-145 mmol/L Potassium Level 5.1 3.5-5.1 mmol/L Chloride Level 107 98-107 mmol/L Carbon Dioxide Level 19 L 20-31 mmol/L Anion Gap 19 H 5-15 Blood Urea Nitrogen 55 H 9-23 mg/dL Creatinine 2.15 H 0.700-1.30 mg/dL Glomerular Filtration Rate Calc 31 >90 mL/min BUN/Creatinine Ratio 25.6 H 10.0-20.0 Serum Glucose 351 #H 74-106 mg/dL Lactic Acid Level 9.1 *H 0.4-2.0 mmol/L Calcium Level 7.9 L 8.7-10.4 mg/dL Blood Gas Specimen Type Arterial Blood Gas Sample Site Left radial Blood Gas Patient Temperature 37.0 Arterial Blood Date Drawn [id number] Arterial Blood pH 7.327 L 7.350-7.450 Arterial Blood Partial Pressure CO2 32.2 L 35.0-48.0 mmHg Arterial Blood Partial Pressure O2 105.5 83.0-108.0 mmHg Arterial Blood HCO3 16.5 L 21.0-28.0 mmol/L Arterial Blood Oxygen Saturation 97.5 94.0-98.0 % Arterial Blood Base Excess -8.6 L -2.0-3.0 mmol/L Arterial Blood Oxyhemoglobin 96.2 94.0-98.0 % Arterial Blood Carboxyhemoglobin 0.8 0.5-1.5 % Arterial Blood Methemoglobin 0.5 0.0-1.5 % Cricket Test Modified Blood Gas Total Hemoglobin 9.00 L 13.5-17.5 g/dL Blood Gas Set Respiration Rate 18.0 Blood Gas Modality Vent - ac FiO2 % 50.0 Blood Gas Tidal Volume 450.0 Blood Gas PEEP or CPAP 5.0 Urine Color Yellow Yellow Urine Clarity Cloudy H Clear Urine pH 5.5 5.0-9.0 Urine Specific [place] 1.013 1.001-1.035 Urine Protein 2+ H Negative Urine Ketones Negative Negative Urine Blood 2+ H Negative /uL Urine Nitrite Negative Negative Urine Bilirubin Negative Negative Urine Urobilinogen Normal Negative mg/dL Urine Leukocyte Esterase 3+ Negative /uL Urine RBC 240 0 - 3 /hpf Urine WBC Clumps Present None Seen /hpf Urine Microscopic WBC 2949 H 0-3 /HPF Urine Squamous Epithelial Cells None seen <5 /hpf Urine Bacteria None seen None Seen /hpf Urine Yeast with Hyphae Present /hpf Urine Yeast (Budding) Moderate None Seen /hpf Urine Creatinine 44.11 30.0-125.0 mg/dL Urine Protein/Creatinine Ratio 3.31 Urine Sodium 40 40-220 mmol/L Urine Glucose 1+ H Normal mg/dL Urine Total Protein 145.9 H 1-14 mg/dL Troponin I High Sensitivity 527 *H </=54 ng/L Test 02/21/25 02:48 02/21/25 01:22 Range/Units Blood Gas Critical Value Read Back Yes Blood Gas Notified Whom Dr. kwame hernandez Blood Gas Notified Time [id number] Blood Gas Notified By Trey sanford rcp Magnesium Level 2.5 1.6-2.6 mg/dL Total Bilirubin 0.6 0.2-1.0 mg/dL Aspartate Amino Transferase (AST) 252 H 13-40 U/L Alanine Aminotransferase (ALT) 265 H 7-40 U/L Alkaline Phosphatase 173 H 46-116 U/L B-Type Natriuretic Peptide 520.13 0-100 pg/mL Total Protein 5.0 L 5.7-8.2 g/dL Albumin 2.7 L 3.2-4.8 g/dL Assessment Assessment and plan: # status post cardiac arrest # CHAY in the setting of shock secondary to hypotension/septic shock # Possible CHAY on CKD # Severe sepsis secondary to bilateral community-acquired Gram-positive/Gram-negative pneumonia/ UTI # NSTEMI type 2 secondary to above # Acute on chronic systolic heart failure with reduced ejection fraction # Transaminitis Plan: - kidney ultrasound demonstrated bilateral medical renal disease - FENA 1.1% - Continue vasopressor for the pressure support - IV Lasix 40 mg b.i.d. - Continue IV antibiotic and other management as per primary - strict I&O - Avoid nephrotoxic medication - monitor BMP 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 Dr. To Addendum Patient seen and examined, plan discussed with resident. Agree with above, we will follow closely Acute kidney injury secondary secondary to shock Volume overloaded recommend diuretics for now Reviewed vital signs, lab work, imaging studies, medications, microbiology, other physician recommendations Total time spent 80 minutes More than 50% of the time spent providing direct [id number] care . Thank you for allowing me to participate in the care of your patient. 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: Spouse, Other (RN) IMTIAZ RICE Feb 21, 2025 17:13 LIVAN TO MD Feb 21, 2025 22:22
[2025-02-21] MEDS ORDERED: FUROSEMIDE 40 MG/4 ML VIAL IV SCH (18:00)
== END 2025-02-21 15:23 | DRG 871 ==
LOC: EDBD 00:59 → ER 00:59 → OVERFLOW 07:34 → ICU WEST 09:35
PROVIDERS: ADMIT Nurse Practitioner Family; ATTEND Nurse Practitioner Family
PROC: 0BH17EZ Insertion of Endotracheal Airway into Trachea, Via Natural or Artificial Opening (ICD-10-PCS; principal; 2025-02-21)
PROC: 5A1935Z Respiratory Ventilation, Less than 24 Consecutive Hours (ICD-10-PCS; 2025-02-21)
PROC: 02HV33Z Insertion of Infusion Device into Superior Vena Cava, Percutaneous Approach (ICD-10-PCS; 2025-02-21)
PROC: B548ZZA Ultrasonography of Superior Vena Cava, Guidance (ICD-10-PCS; 2025-02-21)
DX: A41.9 Sepsis, unspecified organism (principal); I21.A1 Myocardial infarction type 2; I50.23 Acute on chronic systolic (congestive) heart failure; J96.01 Acute respiratory failure with hypoxia; E87.20 Acidosis, unspecified; I13.0 Hypertensive heart and chronic kidney disease with heart failure and stage 1 through stage 4 chronic kidney disease, or unspecified chronic kidney disease; N17.9 Acute kidney failure, unspecified; N39.0 Urinary tract infection, site not specified; I24.9 Acute ischemic heart disease, unspecified; Z66 Do not resuscitate; E11.22 Type 2 diabetes mellitus with diabetic chronic kidney disease; E11.65 Type 2 diabetes mellitus with hyperglycemia; I25.10 Atherosclerotic heart disease of native coronary artery without angina pectoris; R74.01 Elevation of levels of liver transaminase levels; R65.20 Severe sepsis without septic shock; I46.9 Cardiac arrest, cause unspecified; I48.91 Unspecified atrial fibrillation; N18.9 Chronic kidney disease, unspecified; Z89.512 Acquired absence of left leg below knee; Z85.46 Personal history of malignant neoplasm of prostate; Z85.828 Personal history of other malignant neoplasm of skin; K52.9 Noninfective gastroenteritis and colitis, unspecified
CPT/HCPCS: 31500; 36415; 36556; 36600; 70450; 71045; 74176; 76775; 80048; 80053; 81001; 82570; 82805; 83605; 83735; 83880; 84156; 84300; 84484; 85007; 85027; 86850; 86900; 86901; 87040; 87070; 87081; 87086; 87088; 87186; 87205; 93306; 94002; 96361; 96365; 99291; G0378; J0169; J2470; J2543; J2704